=== PATIENT | male | born 1955 | race Caucasian/White ===

== ENCOUNTER → 2018-11-16 | Outpatient (CLI) | payer MEDICARE ==
--- NOTE | 2018-11-17 12:39 | RADIOLOGY REPORT (SQ) ---
EXAM DESCRIPTION: PET CT SKULL/THIGH COMPLETED DATE/TIME: 11/16/2018 10:11 pm REASON FOR STUDY: COLON CANCER C18.7 MALIGNANT NEOPLASM OF SIGMOID COLON COMPARISON: No prior imaging available RADIONUCLIDE AND DOSE: 10.5 mCi F18 FDG The route of agent administration: Intravenous FASTING BLOOD SUGAR: 132 mg/dl CONTRAST TYPE AND DOSE: No CT contrast given. TECHNIQUE: Blood glucose level was verified. Above dose of FDG was injected intravenously. 2-D seg mented attenuation correction images were obtained from the base of the skull to the midthighs. Nonc ontrast CT images were obtained for attenuation correction and fusion with emission images. CT image s were performed without oral or intravenous contrast and are not sensitive for parenchymal lesions. A series of overlapping emission PET images were obtained. Images reviewed and manipulated at [facility] work station by the radiologist. Images stored on PACS. LIMITATIONS: None. FINDINGS: HEAD AND NECK: No areas of abnormal metabolic activity in the soft tissues of the head and neck. CHEST: No areas of abnormal metabolic activity in the chest. ABDOMEN AND PELVIS: No areas of abnormal metabolic activity in the abdomen or pelvis. Expected physi ologic activity is present in the genitourinary system and bowel. PROXIMAL LOWER EXTREMITIES: No areas of abnormal metabolic activity in the soft tissues of the lower extremities. BONES: No abnormal metabolic activity in the visualized skeleton. ADDITIONAL CT FINDINGS: G tube tip in the antrum of the stomach. Left permanent central line tip sup erior vena cava. Non metabolic hepatic cysts in the right lobe liver subdiaphragmatic surface, 3.2 c m diameter on axial image 113, 4.6 cm right lobe liver image 127. OTHER: Liver background activity 2.5 SUV, blood pool background activity 1.8 SUV. IMPRESSION: No hypermetabolic lesions worrisome for metastatic colon cancer TECHNICAL DOCUMENTATION: JOB ID: [id number] [employer]- All Rights Reserved Reading location - IP/workstation name: [email or web address]
== END ==
LOC: RAD 19:25
PROVIDERS: ATTEND Internal Medicine Medical Oncology
DX: C18.7 Malignant neoplasm of sigmoid colon (principal)
CPT/HCPCS: 78815; A9552

== ENCOUNTER 2018-12-16 15:38 | Day surgery (SDC) | payer MEDICARE ==
[~2018-12-16 15:38] MED LIST: DIPHENHYDRAMINE HCL 50 MG/ML VIAL ONE; EPINEPHRINE INJ 1 MG/10 ML DISP.SYRIN ONE; FENTANYL CITRATE INJ/PF 100 MCG/2 ML AMPUL ONE; FLUMAZENIL INJ 0.5 MG/5 ML VIAL ONE; GLUCAGON,HUMAN RECOMB 1 MG INJ ONE; MIDAZOLAM 2 MG/2 ML INJ ONE; NALOXONE HCL INJ/PF 0.4 MG/1 ML SDV ONE; ONDANSETRON HCL INJ/PF 4 MG/2 ML SDV ONE
--- NOTE | 2018-12-16 18:17 | Operative Report ---
Operative Report DATE OF SURGERY: 12/16/18 Operative Report: Pre-op diagnosis: History of metastatic colon cancer Post-op diagnosis: 1. Gastritis involving the antrum and body 2. Rectosigmoid lesion with stricture Surgery: Upper endoscopy, biopsy and Colonoscopy with biopsy Medications: Versed 2mg, Fentanyl 50mcg IV push Tissue removed: Gastric antrum and body biopsies, rectosigmoid biopsy Procedure: After informed consent obtained from patient, patient's pharynx was sprayed with Hurricane and conscious sedation was achieved. The upper endoscope was then inserted into the esophagus under direct vision and advanced into the stomach and further into the duodenum. Detailed examination of the duodenum, stomach and the esophagus was then performed. A digital rectal examination was performed and this was unremarkable. The colonoscope was inserted into the rectum and advanced to the cecum. The appe ndiceal orifice and the terminal ileum were both identified. The mucosa was examined into details as the colonoscope was slowly pulled out of the patient. The endoscope was retroflexed in the rectum. Patient tolerated the procedure well. Findings Esophagus: Normal Stomach: Mild erythema noted in the gastric antrum and body. The PEG tube was noted in the gastric body Duodenum: Normal Cecum: Normal Ascending colon: Normal Transverse colon: Normal Descending colon: Normal Sigmoid colon: There was erythema, edema, friability, and stenosis noted at the rectosigmoid area at about 12 cm. Biopsy was taken Rectum: Normal except for internal hemorrhoids Plan: Await pathology. Omeprazole 20 mg daily OPERATION: .
[2018-12-16 19:23] VITALS: BP 141/76
== END 2018-12-16 19:16 | disposition home or self-care (01) ==
LOC: END 15:38
PROVIDERS: ATTEND Internal Medicine Gastroenterology
DX: C18.9 Malignant neoplasm of colon, unspecified (principal); D12.6 Benign neoplasm of colon, unspecified; K56.699 Other intestinal obstruction unspecified as to partial versus complete obstruction; K29.50 Unspecified chronic gastritis without bleeding; K62.5 Hemorrhage of anus and rectum; C78.7 Secondary malignant neoplasm of liver and intrahepatic bile duct; C78.00 Secondary malignant neoplasm of unspecified lung; C79.00 Secondary malignant neoplasm of unspecified kidney and renal pelvis; E66.9 Obesity, unspecified; Z79.01 Long term (current) use of anticoagulants; Z79.899 Other long term (current) drug therapy; Z68.31 Body mass index [BMI] 31.0-31.9, adult; Z86.718 Personal history of other venous thrombosis and embolism
CPT/HCPCS: 43239; 45380; 88342 ×2; 88305 ×2; J2250; J3010; J0171; J1200; J1610; J2310; J2405; J3490

== ENCOUNTER 2019-02-05 07:25 | Inpatient (IN) | payer MEDICARE ==
--- NOTE | 2019-01-29 09:52 | RADIOLOGY REPORT (SQ) ---
EXAM DESCRIPTION: CHEST PA/LATERAL COMPLETED DATE/TIME: 01/29/2019 9:43 am REASON FOR STUDY: PRE-OP COMPARISON: PET-CT 11/16/2018 EXAM PARAMETERS: NUMBER OF VIEWS: two views TECHNIQUE: Digital Frontal and Lateral radiographic views of the chest acquired. RADIATION DOSE: NA LIMITATIONS: none FINDINGS: LUNGS AND PLEURA: Old pleural-parenchymal scarring in the left lateral chest adjacent to m ultiple old healed rib fractures. No acute infiltrates. No pleural effusion or pneumothorax. MEDIASTINUM AND HILAR STRUCTURES: No masses or contour abnormalities. HEART AND VASCULAR STRUCTURES: Mild cardiomegaly BONES: No acute findings. HARDWARE: Left-sided permanent central line tip superior vena cava OTHER: No other significant finding. IMPRESSION: No acute findings. Multiple old left rib fractures with adjacent pleural thickening TECHNICAL DOCUMENTATION: JOB ID: [id number] [employer] All Rights Reserved Reading location - IP/workstation name: [email or web address]
[2019-01-29 10:06] LABS: HEMATOCRIT 36.9 % (37.9-51.0); HEMOGLOBIN 12.2 g/dL (13.5-17.0); MEAN CORPUSCULAR HEMOGLOBIN 30.4 pg (27.0-33.4); MEAN CORPUSCULAR HGB CONC 33.1 g/dL (32.0-36.0); MEAN CORPUSCULAR VOLUME 92 fl (80-97); PLATELET COUNT 245 10^3/uL (150-450); RED BLOOD COUNT 4.02 10^6/uL (4.35-5.55); RED CELL DISTRIBUTION WIDTH 14.3 % (11.5-14.0); WHITE BLOOD COUNT 9.8 10^3/uL (4.0-10.5)
[2019-01-29 10:37] LABS: ANION GAP 7 (5-19); BLOOD UREA NITROGEN 15 mg/dL (7-20); CALCIUM 9.9 mg/dL (8.4-10.2); CARBON DIOXIDE 26 mmol/L (22-30); CHLORIDE 104 mmol/L (98-107); GLUCOSE 103 mg/dL (75-110); POTASSIUM 4.2 mmol/L (3.6-5.0); SODIUM 137.4 mmol/L (137-145)
--- NOTE | 2019-01-29 15:32 | EKG REPORT ---
SEVERITY:- BORDERLINE ECG - SINUS RHYTHM LOW VOLTAGE IN FRONTAL LEADS BORDERLINE T ABNORMALITIES, INFERIOR LEADS : Confirmed by: Letha Arroyo MD 29-Jan-2019 15:31:38
[~2019-02-05 07:25] MED LIST changes: +CEFAZOLIN 2 GM/D5W RTU 2 GM/50 ML RTUPB IV ONE; +CEFAZOLIN 2 GM/D5W RTU 2 GM/50 ML RTUPB IV PRN; -DIPHENHYDRAMINE HCL 50 MG/ML VIAL ONE; -EPINEPHRINE INJ 1 MG/10 ML DISP.SYRIN ONE; -FENTANYL CITRATE INJ/PF 100 MCG/2 ML AMPUL ONE; -FLUMAZENIL INJ 0.5 MG/5 ML VIAL ONE; -GLUCAGON,HUMAN RECOMB 1 MG INJ ONE; +LACTATED RINGERS 1000 ML IV PRN; +LIDOCAINE 0.5% INJ-PF (5 MG/ML) 50 ML SDV SUBCUT PRN; +METRONIDAZOLE 500 MG/NS RTU 500 MG/100 ML RTUPB IV ONE; +METRONIDAZOLE 500 MG/NS RTU 500 MG/100 ML RTUPB IV PRN; -MIDAZOLAM 2 MG/2 ML INJ ONE; -NALOXONE HCL INJ/PF 0.4 MG/1 ML SDV ONE; -ONDANSETRON HCL INJ/PF 4 MG/2 ML SDV ONE
[2019-02-05] MEDS ORDERED: BUPIVACAINE HCL 0.5%-EPI 1:200000 INJ/PF 30 ML VIAL ONE (09:34)
[2019-02-05] MEDS ORDERED: MIDAZOLAM 2 MG/2 ML INJ ONE (09:37)
[2019-02-05] MEDS ORDERED: ACETAMINOPHEN 1,000 MG/100 ML RTUPB IV ONE (09:37)
[2019-02-05] MEDS ORDERED: PROPOFOL INJ 200 MG/20 ML VIAL IV ONE (09:37)
[2019-02-05] MEDS ORDERED: FENTANYL CITRATE INJ/PF 250 MCG/5 ML AMPULE ONE ×3 (09:37→13:04)
[2019-02-05] MEDS ORDERED: HYDROMORPHONE HCL INJ/PF 2 MG/ML AMPULE ONE ×3 (09:37→13:05)
[2019-02-05] MEDS ORDERED: SUGAMMADEX SODIUM 200 MG/2 ML SDV IV ONE (09:38)
[2019-02-05 09:41] LABS: INTERNATIONAL RATION (INR) 1.12
[2019-02-05 09:43] LABS: PARTIAL THROMBOPLASTIN TIME 39.7 SEC (23.5-35.8)
[2019-02-05] MEDS ORDERED: MORPHINE SULFATE 10 MG/ML INJ IV PRN ×3 (10:58→15:43)
[2019-02-05] MEDS ORDERED: MEPERIDINE HCL/PF INJ 25 MG/1 ML DISP.SYRIN IV PRN ×2 (10:58→14:29)
[2019-02-05] MEDS ORDERED: PROMETHAZINE HCL INJ 25 MG/1 ML VIAL IV PRN ×3 (10:58→14:29)
[2019-02-05] MEDS ORDERED: FENTANYL CITRATE INJ/PF 100 MCG/2 ML AMPUL IV PRN ×6 (10:58→14:29)
[2019-02-05] MEDS ORDERED: DIPHENHYDRAMINE HCL 50 MG/ML VIAL IV PRN ×2 (10:58→14:29)
[2019-02-05] MEDS ORDERED: METOPROLOL TARTRATE PF/INJ 5 MG/5 ML SDV IV ONE (11:15)
[2019-02-05] MEDS ORDERED: METHYLENE BLUE 50 MG/10 ML AMPULE ONE (11:21)
[2019-02-05] MEDS ORDERED: DEXAMETHASONE SOD PHOSPHATE INJ 4 MG/1 ML VIAL ONE (11:29)
[2019-02-05] MEDS ORDERED: LIDOCAINE 2% INJ-PF (20 MG/ML) 2 ML AMPUL ONE (11:29)
[2019-02-05] MEDS ORDERED: GLYCOPYRROLATE 1 MG/5 ML SYRINGE ONE (11:29)
[2019-02-05] MEDS ORDERED: VECURONIUM BROMIDE INJ 10 MG VIAL IV ONE (11:29)
[2019-02-05] MEDS ORDERED: KETOROLAC TROMETHAMINE 60 MG/2 ML SDV ONE (11:29)
[2019-02-05] MEDS ORDERED: NEOSTIGMINE METHYLSULFATE 10 MG/10 ML VIAL ONE (11:29)
[2019-02-05] MEDS ORDERED: ONDANSETRON HCL INJ/PF 4 MG/2 ML SDV ONE ×2 (11:29→16:10)
[2019-02-05] MEDS ORDERED: OXYCODONE-ACETAMINOPHEN 5-325 MG TABLET PO PRN ×2 (14:29)
--- NOTE | 2019-02-05 15:50 | RADIOLOGY REPORT (SQ) ---
EXAM DESCRIPTION: KUB/ABDOMEN (SINGLE VIEW) COMPLETED DATE/TIME: 02/05/2019 3:28 pm REASON FOR STUDY: INTRA-OP SURGICAL COUNT DISCREPENCY C18.9 MALIGNANT NEOPLASM OF COLON, UNSPECIFIE D COMPARISON: None. NUMBER OF VIEWS: One view. TECHNIQUE: Supine radiographic image of the abdomen acquired. LIMITATIONS: None. FINDINGS: BOWEL GAS PATTERN: Normal bowel gas pattern. No dilated loops. CALCIFICATIONS: No suspicious calcifications. SOFT TISSUES: No gross mass or suggestion of organomegaly. HARDWARE: None in the abdomen. BONES: No acute fracture. No worrisome bone lesions. OTHER: No metallic foreign body. Percutaneous gastrostomy tube and postoperative findings including surgical drain about the low abdomen, Draper catheter, and left lower quadrant colostomy appliance. IMPRESSION: No metallic foreign body in the abdomen to correspond to missing surgical instrument. TECHNICAL DOCUMENTATION: JOB ID: [id number] [employer]- All Rights Reserved Reading location - IP/workstation name: [email or web address]
[2019-02-05] MEDS ORDERED: FENTANYL CITRATE INJ/PF 100 MCG/2 ML AMPUL ONE (15:58)
[2019-02-05] MEDS: ONDANSETRON HCL INJ/PF 4 MG/2 ML SDV IV PRN (16:12)
[2019-02-05] MEDS: MORPHINE SULFATE 10 MG/ML INJ IV PRN (19:16)
[2019-02-05] MEDS: FAMOTIDINE INJ/PF 20 MG/2 ML SDV IV SCH (21:35)
[2019-02-05] MEDS: HEPARIN SOD (PORCINE) 5,000 UNIT/ML 1 ML SYRINGE SUBCUT SCH (21:35)
[2019-02-05] MEDS: ZOLPIDEM TARTRATE 5 MG TABLET PO SCH (21:36)
[2019-02-05] MEDS: OXYCODONE-ACETAMINOPHEN 5-325 MG TABLET PO PRN (21:36)
[2019-02-06] MEDS: OXYCODONE-ACETAMINOPHEN 5-325 MG TABLET PO PRN ×3 (04:12→17:21)
[2019-02-06] MEDS: HEPARIN SOD (PORCINE) 5,000 UNIT/ML 1 ML SYRINGE SUBCUT SCH ×3 (05:44→22:06)
[2019-02-06 06:05] LABS: HEMATOCRIT 25.1 % (37.9-51.0); HEMOGLOBIN 8.5 g/dL (13.5-17.0); MEAN CORPUSCULAR HEMOGLOBIN 30.6 pg (27.0-33.4); MEAN CORPUSCULAR HGB CONC 33.6 g/dL (32.0-36.0); MEAN CORPUSCULAR VOLUME 91 fl (80-97); PLATELET COUNT 220 10^3/uL (150-450); RED BLOOD COUNT 2.76 10^6/uL (4.35-5.55); RED CELL DISTRIBUTION WIDTH 14.1 % (11.5-14.0); WHITE BLOOD COUNT 17.7 10^3/uL (4.0-10.5)
[2019-02-06 06:32] LABS: BLOOD UREA NITROGEN 14 mg/dL (7-20); GLUCOSE 126 mg/dL (75-110); POTASSIUM 5.1 mmol/L (3.6-5.0)
[2019-02-06 06:35] LABS: ABSOLUTE LYMPHOCYTES# (MANUAL) 0.5 10^3/uL (0.5-4.7); ABSOLUTE MONOCYTES # (MANUAL) 0.2 10^3/uL (0.1-1.4); BASOPHILS % (MANUAL) 0 % (0-2); EOSINOPHILS % (MANUAL) 0 % (0-6); LYMPHOCYTES % (MANUAL) 3 % (13-45); MONOCYTES % (MANUAL) 1 % (3-13); SEGMENTED NEUTROPHILS % (MAN) 96 % (42-78); TOTAL CELLS COUNTED 100
[2019-02-06 06:36] LABS: PLATELET COMMENT ADEQUATE; RBC MORPHOLOGY COMMENT NORMO-CYTIC/CHROMIC; TOXIC GRANULATION SLIGHT; TOXIC VACUOLATION PRESENT
[2019-02-06 06:38] LABS: CARBON DIOXIDE 27 mmol/L (22-30); CHLORIDE 103 mmol/L (98-107); SODIUM 133.3 mmol/L (137-145)
[2019-02-06 06:42] LABS: ANION GAP 3 (5-19)
--- NOTE | 2019-02-06 07:51 | Operative Report ---
Operative Report DATE OF SURGERY: 02/05/19 PREOPERATIVE DIAGNOSIS: hx of colon cancer POSTOPERATIVE DIAGNOSIS: recurrent colon cancer OPERATION: laparoscopic converted to open sigmoid colectomy with. colostomy SURGEON: MARIETTA TODD 1ST REEL STRIPPER: SIERRA GOMEZ ANESTHESIA: GA TISSUE REMOVED OR ALTERED: simoid colon, rectum COMPLICATIONS: none ESTIMATED BLOOD LOSS: 200cc INTRAOPERATIVE FINDINGS: strictue of rectum and recurrent colon cancer in pelvis PROCEDURE: see dictation
--- NOTE | 2019-02-06 07:55 | PDOC PROGRESS REPORT ---
Subjective Progress Note for:: 02/06/19 Subjective:: feels ok , still iwth incisional pain Reason For Visit: RECTAL CANCER Physical Exam Vital Signs: Temp Pulse Resp BP Pulse Ox 97.8 F 91 15 131/86 H 95 02/06/19 00:02 02/06/19 00:02 02/06/19 00:02 02/06/19 00:02 02/06/19 00:02 Intake & Output 02/05/19 02/06/19 02/07/19 06:59 06:59 06:59 Intake Total 9440 Output Total 4395 Balance 5045 Weight 101.2 kg General appearance: PRESENT: no acute distress Head exam: PRESENT: normocephalic Eye exam: PRESENT: conjunctiva pink, EOMI Mouth exam: PRESENT: dry mucosa Teeth exam: PRESENT: poor dentation Neck exam: PRESENT: full ROM Respiratory exam: PRESENT: clear to auscultation luna Cardiovascular exam: PRESENT: RRR Pulses: PRESENT: normal radial pulses, normal femoral pulses, +2 pedal pulses bilateral Vascular exam: PRESENT: normal capillary refill GI/Abdominal exam: PRESENT: other - abd soft, incision clean, stoma pink Rectal exam: PRESENT: deferred Gentrourinary exam: PRESENT: indwelling catheter Extremities exam: PRESENT: full ROM Musculoskeletal exam: PRESENT: full ROM Neurological exam: PRESENT: alert, awake, oriented to person, oriented to place, oriented to time, oriented to situation Psychiatric exam: PRESENT: appropriate affect Skin exam: PRESENT: dry Results Laboratory Results: 02/06/19 06:00 02/06/19 06:00 02/06/19 02/06/19 06:00 06:00 WBC 17.7 H RBC 2.76 L Hgb 8.5 L Hct 25.1 L MCV 91 MCH 30.6 MCHC 33.6 RDW 14.1 H Plt Count 220 Seg Neutrophils % Not Reportable Lymphocytes % Not Reportable Monocytes % Not Reportable Eosinophils % Not Reportable Basophils % Not Reportable Absolute Neutrophils Not Reportable Absolute Lymphocytes Not Reportable Absolute Monocytes Not Reportable Absolute Eosinophils Not Reportable Absolute Basophils Not Reportable Sodium 133.3 L Potassium 5.1 H Chloride 103 Carbon Dioxide 27 Anion Gap 3 L BUN 14 Creatinine 1.28 H Est GFR ( Amer) > 60 Est GFR (Non-Af Amer) 57 L Glucose 126 H Calcium 8.0 L Impressions: Chest X-Ray 04/18/19 09:35 IMPRESSION: No acute findings. Multiple old left rib fractures with adjacent pleural thickening KUB X-Ray 02/05/19 14:49 IMPRESSION: No metallic foreign body in the abdomen to correspond to missing surgical instrument. Assessment & Plan - Plan Summary Plan Summary: procedure and finding explained to pt has recurrent rectal cancer with pelvic nodes and rectal stricture required a colostomy now post op day 1 afeb vss hct decreased apppropiate post op, will trend no op via stoma as yet will increase acitivity today physical therapy await return of bowel function
[2019-02-06] MEDS: DEXTROSE 5%-LACTATED RINGERS 1,000 ML IV PRN ×2 (08:11→17:11)
[2019-02-06] MEDS: FAMOTIDINE INJ/PF 20 MG/2 ML SDV IV SCH ×2 (08:59→22:06)
[2019-02-06] MEDS ORDERED: CHLORPROMAZINE HCL INJ 25 MG/1 ML AMPULE IM PRN (11:14)
[2019-02-06] MEDS: MORPHINE SULFATE 10 MG/ML INJ IV PRN ×2 (11:26→19:33)
[2019-02-06] MEDS: ZOLPIDEM TARTRATE 5 MG TABLET PO SCH (22:06)
[2019-02-07] MEDS: OXYCODONE-ACETAMINOPHEN 5-325 MG TABLET PO PRN ×3 (01:14→14:53)
[2019-02-07] MEDS: DEXTROSE 5%-LACTATED RINGERS 1,000 ML IV PRN ×2 (01:15→11:36)
[2019-02-07] MEDS: HEPARIN SOD (PORCINE) 5,000 UNIT/ML 1 ML SYRINGE SUBCUT SCH ×3 (05:43→21:56)
[2019-02-07] MEDS: FAMOTIDINE INJ/PF 20 MG/2 ML SDV IV SCH ×2 (08:38→21:55)
[2019-02-07 10:29] LABS: ABSOLUTE EOSINOPHILS # (AUTO) 0.1 10^3/uL (0.0-0.6); ABSOLUTE LYMPHOCYTES (AUTO) 1.1 10^3/uL (0.5-4.7); ABSOLUTE MONOCYTES (AUTO) 0.7 10^3/uL (0.1-1.4); ABSOLUTE NEUT (AUTO) 9.9 10^3/uL (1.7-8.2); BASOPHILS % (AUTO) 0.2 % (0-2); EOSINOPHILS % (AUTO) 0.7 % (0-6); HEMATOCRIT 21.3 % (37.9-51.0); LYMPHOCYTES % (AUTO) 9.2 % (13-45); MEAN CORPUSCULAR HEMOGLOBIN 30.2 pg (27.0-33.4); MEAN CORPUSCULAR HGB CONC 32.8 g/dL (32.0-36.0); MEAN CORPUSCULAR VOLUME 92 fl (80-97); MONOCYTES % (AUTO) 5.9 % (3-13); PLATELET COUNT 165 10^3/uL (150-450); RED BLOOD COUNT 2.31 10^6/uL (4.35-5.55); RED CELL DISTRIBUTION WIDTH 13.9 % (11.5-14.0); TOTAL CELLS COUNTED % (AUTO) 100 %; WHITE BLOOD COUNT 11.8 10^3/uL (4.0-10.5)
[2019-02-07 10:38] LABS: BLOOD UREA NITROGEN 13 mg/dL (7-20); CALCIUM 7.8 mg/dL (8.4-10.2); CHLORIDE 103 mmol/L (98-107); GLUCOSE 105 mg/dL (75-110); POTASSIUM 3.9 mmol/L (3.6-5.0)
[2019-02-07 10:44] LABS: CARBON DIOXIDE 29 mmol/L (22-30); SODIUM 133.6 mmol/L (137-145)
[2019-02-07 10:47] LABS: ANION GAP 2 (5-19)
--- NOTE | 2019-02-07 11:08 | PDOC PROGRESS REPORT ---
Subjective Progress Note for:: 02/07/19 Subjective:: feels weak was up ambulating yesterday Reason For Visit: RECTAL CANCER Physical Exam Vital Signs: Temp Pulse Resp BP Pulse Ox 98.5 F 87 17 125/64 97 02/06/19 23:33 02/06/19 23:33 02/06/19 23:33 02/06/19 23:33 02/06/19 23:33 Intake & Output 02/06/19 02/07/19 02/08/19 06:59 06:59 06:59 Intake Total 9440 2707 Output Total 4397 4244 Balance 5045 362 Weight 101.2 kg 111.7 kg General appearance: PRESENT: no acute distress Eye exam: PRESENT: EOMI Mouth exam: PRESENT: dry mucosa Teeth exam: PRESENT: poor dentation Neck exam: PRESENT: full ROM Respiratory exam: PRESENT: clear to auscultation luna Cardiovascular exam: PRESENT: RRR Pulses: PRESENT: normal radial pulses, normal femoral pulses GI/Abdominal exam: PRESENT: hypoactive bowel sounds, soft, other - gonzález's serosanganeous Rectal exam: PRESENT: deferred Gentrourinary exam: PRESENT: indwelling catheter Extremities exam: PRESENT: full ROM, +2 edema Musculoskeletal exam: PRESENT: full ROM Neurological exam: PRESENT: alert, awake, oriented to person, oriented to place, oriented to time, oriented to situation Psychiatric exam: PRESENT: depressed Skin exam: PRESENT: dry Results Laboratory Results: 02/07/19 10:02 02/07/19 10:02 02/07/19 02/07/19 10:02 10:02 WBC 11.8 H RBC 2.31 L Hgb 7.0 L Hct 21.3 L MCV 92 MCH 30.2 MCHC 32.8 RDW 13.9 Plt Count 165 Seg Neutrophils % 84.0 H Lymphocytes % 9.2 L Monocytes % 5.9 Eosinophils % 0.7 Basophils % 0.2 Absolute Neutrophils 9.9 H Absolute Lymphocytes 1.1 Absolute Monocytes 0.7 Absolute Eosinophils 0.1 Absolute Basophils 0.0 Sodium 133.6 L Potassium 3.9 Chloride 103 Carbon Dioxide 29 Anion Gap 2 L BUN 13 Creatinine 1.14 Est GFR ( Amer) > 60 Est GFR (Non-Af Amer) > 60 Glucose 105 Calcium 7.8 L Impressions: Chest X-Ray 01/29/19 09:35 IMPRESSION: No acute findings. Multiple old left rib fractures with adjacent pleural thickening KUB X-Ray 02/05/19 14:49 IMPRESSION: No metallic foreign body in the abdomen to correspond to missing surgical instrument. Assessment & Plan - Plan Summary Plan Summary: 2 days status post attempted laparoscopic sigmoid colectomy converted to open sigmoid colectomy with colostomy. Patient was up ambulating yesterday feels weak today Ostomy appears to be pink with minimal output Viet-Merida drains are putting out serosanguineous fluid Hemoglobin Came back at 7.0 today with a white count of 11.8 Impression status post attempted laparoscopic sigmoid colectomy conversion to open laparotomy and sigmoid colectomy, partial proctectomy and colostomy for sigmoid rectal cancer Plan we will transfuse the patient 2 units of packed red cells today Continue to increase activity and await for return of bowel function
--- NOTE | 2019-02-07 13:55 | OPERATIVE REPORT E ---
Operative Report NAME: JIM THOMAS : 1955 AGE: 63Y DATE OF SURGERY: 02/05/2019 ROOM: 530 PREOPERATIVE DIAGNOSIS: HISTORY OF COLON CANCER. POSTOPERATIVE DIAGNOSIS: RECURRENT COLON CANCER. OPERATION: Laparoscopic converted to open sigmoid colectomy with partial proctectomy and colostomy. SURGEON: MARIETTA TODD M.D. HEAD SAMPLER: Akil Peterson MD INDICATIONS FOR SURGERY: This is a 63-year-old male who is a patient of Dr. Ortiz, who was sent for surgical consultation for a sigmoid colectomy. The patient was diagnosed with colon cancer in May of 2019. He received chemotherapy due to the fact that he had areas of metastatic disease in his liver at that time, which was diagnosed on PET scan, and also of his kidney and lung. The patient states that after he received chemo, a PET scan in November revealed no evidence of metastatic disease. He was sent to Dr. Melendez for a colonoscopy in December 2018. At that time, Dr. Melendez noted a sigmoid colonic stricture, which he was able to traverse, and that was biopsied. The biopsy proved was negative, but there was a stricture supposedly related to the previous history of colon cancer. He underwent a PET scan subsequent to that, which showed no evidence of metastatic disease. Because of the stricture and previous history of colon cancer and the fact that he was having intermittent bouts of constipation and diarrhea, he was scheduled for surgery for a sigmoid colectomy, in hopes of resecting the sigmoid colon with stricture at the previous tumor site. It was reported by Dr. Melendez to be approximately 12 cm. The patient was therefore scheduled for this procedure. PROCEDURE: The patient was brought to the operating room in awake, alert and stable condition, placed on the operating table in a low lithotomy position, induced under general anesthesia and intubated. The abdomen was prepped and draped in the usual sterile manner for the procedure. The patient did have a previous gastrostomy tube placed during his course of previous chemotherapy and that was prepped out of the wound. After appropriate timeout and site verification, we commenced the surgery. A Veress needle was placed into the umbilicus and the abdomen was insufflated with 6 liters of CO2 gas. An infraumbilical skin incision was made with a 15 blade and a port was placed into the abdominal cavity. Intraabdominal visualization revealed no evidence of a Veress needle or trocar injury. Two right-sided 5-mm ports were placed under direct vision. We immediately identified the colon and we ran the right colon, transverse colon, splenic flexure, descending colon. All appeared to be normal. There was a redundant descending colon and sigmoid colon. The liver was evaluated and it appeared to be mildly nodular, consistent with early cirrhosis, but there was no evidence of any metastatic deposits, nor was there any peritoneal spread of any tumor that we could identify. We identified the sigmoid colon and retracted that out of the pelvis. Began our dissection of the distal sigmoid colon. Proximal rectum was mobilized, and the left side of the sigmoid colon, by taking down the peritoneal reflection with the LigaSure device, and continued that down to the sigmoid-rectal junction. There was some firmness of the sigmoid-rectal junction but there was no evidence of any excrescences or tumor nodules. After identifying the left ureter, I turned attention to the right side of the sigmoid colon and mobilized the peritoneal reflection to identify the right ureter. Once this was done, the patient was placed in Trendelenburg and we mobilized the mesentery off the sacrum and identified the inferior mesenteric artery, which was taken at its base with the LigaSure device. We then continue our mobilization distally to mobilize the distal rectum, along the presacral fascia. Once this was completed, I turned attention to the descending colon so I could mobilize that and allow it to come down to the area of our anastomosis. I took down the white line of Toldt with the LigaSure device and continued our dissection up towards the splenic flexure. I did not have to mobilize the splenic flexure, as there was enough descending and proximal sigmoid colon to easily come down to the pelvis. Once the descending colon was mobilized with the LigaSure device, I came across the distal rectum with 1 firing of the Endo TIMI stapler with a green load. It should be noted that the patient had a previous tattoo marked by Dr. Melendez at the level of the lesion. The sigmoid stapler came across the proximal rectum distal to that tattooed area. After dividing the sigmoid from the rectum, I then placed a clamp on the end of the divided sigmoid and reduced the pneumoperitoneum. We then made an incision in the left lower quadrant with a 15 blade, approximately 8 cm long, and carried our dissection down through subcutaneous tissue with Bovie cautery until I identified the rectus fascia. Just lateral to the rectus fascia, I made a transverse incision in the external oblique and lateral edge of the rectus muscle, and divided the posterior sheath with the Bovie cautery to gain access to the abdominal cavity. I then placed an Laure wound protector in through that incision and then was able to pull up the sigmoid colon into the wound. I was able to deliver approximately 15 to 20 cm of sigmoid colon. I cleared the proximal edge of the sigmoid colon of its mesenteric fat with the Bovie cautery and then came across and placed a bowel clamp on the stay side of it and a Bella clamp on the specimen side, and divided it with Bovie cautery; that was sent off as specimen. I used a sizer then to size the distal descending colon and easily admitted a 33-mm staple anvil, which I placed into the end of the colon. I placed a 2-0 Prolene pursestring suture at the open edge of the colon, and then after the anvil was placed, I tied the pursestring suture down around the neck of the anvil. We then dropped that back into the abdominal cavity and closed off that laure wound protector so that I could reinsufflate the abdominal cavity. Once this was completed, we reinsufflated the abdominal cavity and turned attention to the rectum. I mobilized a little bit more the rectum with sharp dissection using the LigaSure device to allow it to easily come up from the pelvis and so it would be an easy fit to the anvil that was placed in the descending colon. Once this was completed, I went below and used a small dilator to pass into the rectum so that we could dilate it somewhat for the anastomosis. The small rectal dilator did not go through; in fact, it got hung up at about 12 cm. Therefore, I felt that I was not below the previous stricture that was noted by Dr. Melendez. Even though the tattooed section of the sigmoid colon was removed, the stricture was still distal to that. After multiple attempts with the dilator, we could not dilate the stricture, and I therefore attempted to continue laparoscopically to mobilize more rectum, so I could be able to get below the area of strictured rectum. After a prolonged dissection, I felt that laparoscopically, I could not mobilize enough rectum. It seemed fixed in the pelvis, and therefore, I elected to abandon the laparoscopic attempt and perform a low midline incision. Therefore, the pneumoperitoneum was reduced and I made a midline low abdominal incision from approximately 10 cm above the pubic symphysis. This was done with a 15 blade. I carried my dissection down through subcutaneous tissue with Bovie cautery. The midline raphae was identified and this was opened with Bovie cautery. We then used the Bookwalter retractor to gain access. Once this was accomplished, I palpated the distal rectum and it appeared to be quite firm and nodular. I continued my dissection in an attempt to get below it; however, it was fixed posteriorly to the presacral fascia. At this point, I asked Dr. Peterson to come into the operating room to assist and we continued our dissection to try to get distal to the stricture. At one point, the stricture fractured and I noted that I could palpate significant nodularity around the area of the rectum at the level of the stricture. It appeared that there was some lymphadenopathy at the mesorectum, at about 12 cm, in the pelvis. These nodules were outside the rectum, in the presacral space. We continued our mobilization of the distal rectum and finally were able to mobilize it somewhat to get below the area of stricture. Once we did this, we obtained a biopsy of the area around the stricture, external to the rectum, and that biopsy came back adenocarcinoma. I therefore felt uncomfortable at this point performing an anastomosis in an area of recurrent disease and therefore elected to remove the proximal rectum by coming across it with one firing of the Endo TIMI stapler with a green load. That second specimen was removed and sent to pathology. We then had the stump oversewn and I then elected to perform a colostomy instead of a colorectal anastomosis. I made a small incision just to the left of the umbilicus in the rectus fascia using Bovie cautery, ellipsed out an approximately 2-cm segment of skin and carried our dissection down through the rectus fascia. Made a stellate incision in the anterior and posterior sheath and then brought the anvil that had been previously placed in the descending colon up through that incision as a colostomy. Once this was accomplished, I copiously irrigated the abdominal cavity with normal saline and suctioned dry. Hemostasis noted to be intact. I placed a Viet-Merida drain in the pelvis and brought it out through a separate stab wound in the right abdominal wall. We then closed our previous left lower quadrant incision that I used to deliver the specimen, and this was done with interrupted #1 Vicryl sutures. The skin was then closed with standard skin clips. Once this was completed, we matured the colostomy to the skin edge of the left abdominal wall with interrupted 3-0 Vicryl sutures. A sterile colostomy appliance was placed. The midline incision was closed with a double-looped 0 PDS suture in the peritoneum, and then the anterior sheath was closed with interrupted #1 Vicryl sutures. The skin was closed with standard skin clips. This completed the procedure. Note that the midline wound was closed before the stoma was matured. Estimated blood loss was 200 mL. Sponge and needle counts were correct x2. The patient was then awakened in the operating room, extubated and transferred to recovery in stable condition. DICTATING PHYSICIAN: MARIETTA TODD M.D. [id number] PHY#: [id number] ID: [id number] JOB#: [id number] ACCT: [id number] cc:MARIETTA TODD M.D. > MTDD
[2019-02-07] MEDS: MORPHINE SULFATE 10 MG/ML INJ IV PRN ×2 (16:07→20:45)
[2019-02-07] MEDS: ZOLPIDEM TARTRATE 5 MG TABLET PO SCH (21:56)
[2019-02-08] MEDS: HEPARIN SOD (PORCINE) 5,000 UNIT/ML 1 ML SYRINGE SUBCUT SCH ×3 (05:37→21:37)
[2019-02-08] MEDS: MORPHINE SULFATE 10 MG/ML INJ IV PRN ×3 (08:26→20:04)
[2019-02-08] MEDS: OXYCODONE-ACETAMINOPHEN 5-325 MG TABLET PO PRN ×3 (10:23→21:38)
[2019-02-08] MEDS: FAMOTIDINE INJ/PF 20 MG/2 ML SDV IV SCH ×2 (10:23→21:38)
[2019-02-08] MEDS: DEXTROSE 5%-LACTATED RINGERS 1,000 ML IV PRN (12:20)
--- NOTE | 2019-02-08 12:40 | PDOC PROGRESS REPORT ---
Subjective Reason For Visit: RECTAL CANCER Physical Exam Vital Signs: Temp Pulse Resp BP Pulse Ox 97.9 F 110 H 16 149/90 H 96 02/08/19 11:04 02/08/19 11:04 02/08/19 11:04 02/08/19 11:04 02/08/19 11:04 Intake & Output 02/07/19 02/08/19 02/09/19 06:59 06:59 06:59 Intake Total 2707 3906 Output Total 2345 2520 Balance 362 1386 Weight 111.7 kg 114.2 kg General appearance: PRESENT: no acute distress Head exam: PRESENT: normocephalic Eye exam: PRESENT: EOMI Mouth exam: PRESENT: moist Teeth exam: PRESENT: poor dentation Neck exam: PRESENT: full ROM Respiratory exam: PRESENT: clear to auscultation luna Cardiovascular exam: PRESENT: RRR Pulses: PRESENT: normal radial pulses, normal femoral pulses GI/Abdominal exam: PRESENT: soft - few bs Rectal exam: PRESENT: deferred Gentrourinary exam: PRESENT: indwelling catheter Musculoskeletal exam: PRESENT: full ROM Neurological exam: PRESENT: alert, awake, oriented to person, oriented to place Psychiatric exam: PRESENT: appropriate affect Skin exam: PRESENT: dry Results Laboratory Results: 02/07/19 10:02 02/07/19 10:02 02/07/19 11:20 Blood Type O POSITIVE Antibody Screen NEGATIVE Impressions: Chest X-Ray 01/29/19 09:35 IMPRESSION: No acute findings. Multiple old left rib fractures with adjacent pleural thickening KUB X-Ray 02/05/19 14:49 IMPRESSION: No metallic foreign body in the abdomen to correspond to missing surgical instrument. Assessment & Plan - Plan Summary Plan Summary: afeb vss eating full lqiudis no op via stoma as yet few bs wound clean dry encouraged to get out of bed will recheck labs in am virginie lamar.
[2019-02-08 13:33] LABS: ABSOLUTE BASOPHILS # (AUTO) 0.1 10^3/uL (0.0-0.2); ABSOLUTE EOSINOPHILS # (AUTO) 0.4 10^3/uL (0.0-0.6); ABSOLUTE LYMPHOCYTES (AUTO) 0.8 10^3/uL (0.5-4.7); ABSOLUTE MONOCYTES (AUTO) 0.7 10^3/uL (0.1-1.4); ABSOLUTE NEUT (AUTO) 8.8 10^3/uL (1.7-8.2); BASOPHILS % (AUTO) 0.5 % (0-2); EOSINOPHILS % (AUTO) 3.7 % (0-6); HEMATOCRIT 29.8 % (37.9-51.0); LYMPHOCYTES % (AUTO) 7.9 % (13-45); MEAN CORPUSCULAR HEMOGLOBIN 30.4 pg (27.0-33.4); MEAN CORPUSCULAR HGB CONC 34.1 g/dL (32.0-36.0); MEAN CORPUSCULAR VOLUME 89 fl (80-97); MONOCYTES % (AUTO) 6.4 % (3-13); PLATELET COUNT 172 10^3/uL (150-450); RED BLOOD COUNT 3.34 10^6/uL (4.35-5.55); RED CELL DISTRIBUTION WIDTH 14.2 % (11.5-14.0); SEGMENTED NEUTROPHILS % (AUTO) 81.5 % (42-78); TOTAL CELLS COUNTED % (AUTO) 100 %; WHITE BLOOD COUNT 10.7 10^3/uL (4.0-10.5)
[2019-02-08 13:35] LABS: HEMOGLOBIN 10.2 g/dL (13.5-17.0)
[2019-02-08 13:46] LABS: ANION GAP 7 (5-19); BLOOD UREA NITROGEN 8 mg/dL (7-20); CALCIUM 7.8 mg/dL (8.4-10.2); CARBON DIOXIDE 27 mmol/L (22-30); CHLORIDE 103 mmol/L (98-107); GLUCOSE 123 mg/dL (75-110); POTASSIUM 4.3 mmol/L (3.6-5.0); SODIUM 136.7 mmol/L (137-145)
[2019-02-08] MEDS: ZOLPIDEM TARTRATE 5 MG TABLET PO SCH (21:38)
[2019-02-09] MEDS: HEPARIN SOD (PORCINE) 5,000 UNIT/ML 1 ML SYRINGE SUBCUT SCH ×3 (05:14→22:43)
--- NOTE | 2019-02-09 08:36 | PDOC PROGRESS REPORT ---
Subjective Progress Note for:: 02/09/19 Subjective:: feels ok ambulated yesterday juan full lilquids no stool as yet via stoma Reason For Visit: RECTAL CANCER Physical Exam Vital Signs: Temp Pulse Resp BP Pulse Ox 98.2 F 90 16 130/74 H 97 02/09/19 07:39 02/09/19 07:39 02/09/19 07:39 02/09/19 07:39 02/09/19 07:39 Intake & Output 02/08/19 02/09/19 02/10/19 06:59 06:59 06:59 Intake Total 3906 2170 Output Total 2520 7882 Balance 1386 -728 Weight 114.2 kg 112.2 kg General appearance: PRESENT: no acute distress Head exam: PRESENT: normocephalic Eye exam: PRESENT: EOMI Mouth exam: PRESENT: moist Neck exam: PRESENT: full ROM Respiratory exam: PRESENT: clear to auscultation luna Cardiovascular exam: PRESENT: RRR Pulses: PRESENT: normal radial pulses, normal femoral pulses GI/Abdominal exam: PRESENT: soft, other - stoma pink, no productive Rectal exam: PRESENT: deferred Extremities exam: PRESENT: full ROM Musculoskeletal exam: PRESENT: full ROM Neurological exam: PRESENT: alert, awake, oriented to person, oriented to place Psychiatric exam: PRESENT: appropriate affect Results Laboratory Results: 02/08/19 13:15 02/08/19 13:15 02/08/19 02/08/19 13:15 13:15 WBC 10.7 H RBC 3.34 L Hgb 10.2 L D Hct 29.8 L MCV 89 MCH 30.4 MCHC 34.1 RDW 14.2 H Plt Count 172 Seg Neutrophils % 81.5 H Lymphocytes % 7.9 L Monocytes % 6.4 Eosinophils % 3.7 Basophils % 0.5 Absolute Neutrophils 8.8 H Absolute Lymphocytes 0.8 Absolute Monocytes 0.7 Absolute Eosinophils 0.4 Absolute Basophils 0.1 Sodium 136.7 L Potassium 4.3 Chloride 103 Carbon Dioxide 27 Anion Gap 7 BUN 8 Creatinine 0.91 Est GFR ( Amer) > 60 Est GFR (Non-Af Amer) > 60 Glucose 123 H Calcium 7.8 L Impressions: Chest X-Ray 01/29/19 09:35 IMPRESSION: No acute findings. Multiple old left rib fractures with adjacent pleural thickening KUB X-Ray 02/05/19 14:49 IMPRESSION: No metallic foreign body in the abdomen to correspond to missing surgical instrument. Assessment & Plan - Plan Summary Plan Summary: doing well still no bowel function will cont current rx awaing for stoma output before advancing diet.
[2019-02-09] MEDS: DEXTROSE 5%-LACTATED RINGERS 1,000 ML IV PRN ×2 (10:01→22:44)
[2019-02-09] MEDS: FAMOTIDINE INJ/PF 20 MG/2 ML SDV IV SCH ×2 (10:03→22:43)
[2019-02-09] MEDS: OXYCODONE-ACETAMINOPHEN 5-325 MG TABLET PO PRN ×2 (10:33→14:37)
[2019-02-09] MEDS: MORPHINE SULFATE 10 MG/ML INJ IV PRN ×2 (12:50→17:10)
[2019-02-09 16:10] LABS: ABSOLUTE BASOPHILS # (AUTO) 0.1 10^3/uL (0.0-0.2); ABSOLUTE EOSINOPHILS # (AUTO) 0.4 10^3/uL (0.0-0.6); ABSOLUTE LYMPHOCYTES (AUTO) 0.9 10^3/uL (0.5-4.7); ABSOLUTE MONOCYTES (AUTO) 0.7 10^3/uL (0.1-1.4); ABSOLUTE NEUT (AUTO) 7.8 10^3/uL (1.7-8.2); BASOPHILS % (AUTO) 0.5 % (0-2); HEMOGLOBIN 9.7 g/dL (13.5-17.0); MEAN CORPUSCULAR HGB CONC 33.5 g/dL (32.0-36.0); MEAN CORPUSCULAR VOLUME 89 fl (80-97); MONOCYTES % (AUTO) 6.7 % (3-13); PLATELET COUNT 198 10^3/uL (150-450); RED BLOOD COUNT 3.25 10^6/uL (4.35-5.55); RED CELL DISTRIBUTION WIDTH 13.6 % (11.5-14.0); SEGMENTED NEUTROPHILS % (AUTO) 79.8 % (42-78); TOTAL CELLS COUNTED % (AUTO) 100 %; WHITE BLOOD COUNT 9.8 10^3/uL (4.0-10.5)
[2019-02-09 16:18] LABS: ANION GAP 8 (5-19); BLOOD UREA NITROGEN 5 mg/dL (7-20); CALCIUM 7.6 mg/dL (8.4-10.2); CARBON DIOXIDE 27 mmol/L (22-30); CHLORIDE 101 mmol/L (98-107); GLUCOSE 116 mg/dL (75-110); POTASSIUM 4.3 mmol/L (3.6-5.0); SODIUM 136.4 mmol/L (137-145)
[2019-02-09] MEDS: ZOLPIDEM TARTRATE 5 MG TABLET PO SCH (22:43)
[2019-02-10] MEDS: HEPARIN SOD (PORCINE) 5,000 UNIT/ML 1 ML SYRINGE SUBCUT SCH ×3 (05:49→21:51)
[2019-02-10 07:11] LABS: ABSOLUTE EOSINOPHILS # (AUTO) 0.6 10^3/uL (0.0-0.6); ABSOLUTE LYMPHOCYTES (AUTO) 1.3 10^3/uL (0.5-4.7); ABSOLUTE MONOCYTES (AUTO) 0.7 10^3/uL (0.1-1.4); ABSOLUTE NEUT (AUTO) 6.1 10^3/uL (1.7-8.2); BASOPHILS % (AUTO) 0.6 % (0-2); EOSINOPHILS % (AUTO) 6.7 % (0-6); HEMATOCRIT 27.3 % (37.9-51.0); HEMOGLOBIN 9.1 g/dL (13.5-17.0); LYMPHOCYTES % (AUTO) 14.7 % (13-45); MEAN CORPUSCULAR HEMOGLOBIN 29.9 pg (27.0-33.4); MEAN CORPUSCULAR HGB CONC 33.2 g/dL (32.0-36.0); MEAN CORPUSCULAR VOLUME 90 fl (80-97); MONOCYTES % (AUTO) 8.1 % (3-13); PLATELET COUNT 190 10^3/uL (150-450); RED BLOOD COUNT 3.02 10^6/uL (4.35-5.55); SEGMENTED NEUTROPHILS % (AUTO) 69.9 % (42-78); TOTAL CELLS COUNTED % (AUTO) 100 %; WHITE BLOOD COUNT 8.7 10^3/uL (4.0-10.5)
[2019-02-10 07:34] LABS: ANION GAP 7 (5-19); BLOOD UREA NITROGEN 4 mg/dL (7-20); CALCIUM 7.5 mg/dL (8.4-10.2); CARBON DIOXIDE 27 mmol/L (22-30); CHLORIDE 102 mmol/L (98-107); GLUCOSE 90 mg/dL (75-110); POTASSIUM 4.4 mmol/L (3.6-5.0); SODIUM 136.4 mmol/L (137-145)
--- NOTE | 2019-02-10 07:42 | PDOC PROGRESS REPORT ---
Subjective Progress Note for:: 02/10/19 Subjective:: FEELS OK SMALL AMTS OF FLATUS IN STOMA BAG Reason For Visit: RECTAL CANCER Physical Exam Vital Signs: Temp Pulse Resp BP Pulse Ox 98.4 F 89 17 140/96 H 97 02/09/19 23:21 02/09/19 23:21 02/09/19 19:41 02/09/19 23:21 02/09/19 23:21 Intake & Output 02/09/19 02/10/19 02/11/19 06:59 06:59 06:59 Intake Total 3170 2296 Output Total 2898 920 Balance 272 1376 Weight 112.2 kg 112.2 kg General appearance: PRESENT: no acute distress Head exam: PRESENT: normocephalic Eye exam: PRESENT: EOMI Mouth exam: PRESENT: moist Neck exam: PRESENT: full ROM Respiratory exam: PRESENT: clear to auscultation luna Cardiovascular exam: PRESENT: RRR GI/Abdominal exam: PRESENT: hyperactive bowel sounds, normal bowel sounds, soft Rectal exam: PRESENT: deferred, other - STOMA PINK, PRODUCTIVE OF FLATUS Extremities exam: PRESENT: full ROM Musculoskeletal exam: PRESENT: full ROM Neurological exam: PRESENT: alert, awake, oriented to person, oriented to place, oriented to time, oriented to situation Psychiatric exam: PRESENT: appropriate affect Results Laboratory Results: 02/10/19 06:00 02/09/19 02/09/19 02/10/19 15:30 15:30 06:00 WBC 9.8 8.7 RBC 3.25 L 3.02 L Hgb 9.7 L 9.1 L Hct 29.0 L 27.3 L MCV 89 90 MCH 30.0 29.9 MCHC 33.5 33.2 RDW 13.6 14.0 Plt Count 198 190 Seg Neutrophils % 79.8 H 69.9 Lymphocytes % 9.0 L 14.7 Monocytes % 6.7 8.1 Eosinophils % 4.0 6.7 H Basophils % 0.5 0.6 Absolute Neutrophils 7.8 6.1 Absolute Lymphocytes 0.9 1.3 Absolute Monocytes 0.7 0.7 Absolute Eosinophils 0.4 0.6 Absolute Basophils 0.1 0.0 Sodium 136.4 L Potassium 4.3 Chloride 101 Carbon Dioxide 27 Anion Gap 8 BUN 5 L Creatinine 0.78 Est GFR ( Amer) > 60 Est GFR (Non-Af Amer) > 60 Glucose 116 H Calcium 7.6 L Impressions: Chest X-Ray 01/29/19 09:35 IMPRESSION: No acute findings. Multiple old left rib fractures with adjacent pleural thickening KUB X-Ray 02/05/19 14:49 IMPRESSION: No metallic foreign body in the abdomen to correspond to missing surgical instrument. Assessment & Plan - Plan Summary Plan Summary: DOING OK NEED TO INCREASE ACTIVITY NOW WITH FLATUS VIA STOMA WILL CONT TO ENCOURATE OOB CONT CLEAR LIQUIDS TILL PASSING STOOL VIA STOMA
[2019-02-10] MEDS: OXYCODONE-ACETAMINOPHEN 5-325 MG TABLET PO PRN ×3 (09:53→23:12)
[2019-02-10] MEDS: FAMOTIDINE INJ/PF 20 MG/2 ML SDV IV SCH ×2 (09:54→21:50)
[2019-02-10] MEDS: DEXTROSE 5%-LACTATED RINGERS 1,000 ML IV PRN (10:00)
[2019-02-10] MEDS: MORPHINE SULFATE 10 MG/ML INJ IV PRN (19:58)
[2019-02-10] MEDS: ZOLPIDEM TARTRATE 5 MG TABLET PO SCH (21:50)
[2019-02-11] MEDS: OXYCODONE-ACETAMINOPHEN 5-325 MG TABLET PO PRN ×2 (03:28→10:28)
[2019-02-11] MEDS: HEPARIN SOD (PORCINE) 5,000 UNIT/ML 1 ML SYRINGE SUBCUT SCH ×3 (06:24→22:11)
[2019-02-11 06:37] LABS: ABSOLUTE BASOPHILS # (AUTO) 0.1 10^3/uL (0.0-0.2); ABSOLUTE EOSINOPHILS # (AUTO) 0.6 10^3/uL (0.0-0.6); ABSOLUTE LYMPHOCYTES (AUTO) 1.4 10^3/uL (0.5-4.7); ABSOLUTE MONOCYTES (AUTO) 0.7 10^3/uL (0.1-1.4); ABSOLUTE NEUT (AUTO) 4.8 10^3/uL (1.7-8.2); BASOPHILS % (AUTO) 0.8 % (0-2); EOSINOPHILS % (AUTO) 7.5 % (0-6); HEMATOCRIT 28.6 % (37.9-51.0); HEMOGLOBIN 9.6 g/dL (13.5-17.0); LYMPHOCYTES % (AUTO) 18.8 % (13-45); MEAN CORPUSCULAR HGB CONC 33.5 g/dL (32.0-36.0); MEAN CORPUSCULAR VOLUME 90 fl (80-97); MONOCYTES % (AUTO) 9.6 % (3-13); PLATELET COUNT 205 10^3/uL (150-450); RED BLOOD COUNT 3.19 10^6/uL (4.35-5.55); RED CELL DISTRIBUTION WIDTH 13.8 % (11.5-14.0); SEGMENTED NEUTROPHILS % (AUTO) 63.3 % (42-78); TOTAL CELLS COUNTED % (AUTO) 100 %; WHITE BLOOD COUNT 7.6 10^3/uL (4.0-10.5)
[2019-02-11 06:57] LABS: ANION GAP 5 (5-19); BLOOD UREA NITROGEN 4 mg/dL (7-20); CALCIUM 7.9 mg/dL (8.4-10.2); CARBON DIOXIDE 31 mmol/L (22-30); CHLORIDE 103 mmol/L (98-107); GLUCOSE 90 mg/dL (75-110); POTASSIUM 4.4 mmol/L (3.6-5.0); SODIUM 139.3 mmol/L (137-145)
--- NOTE | 2019-02-11 09:43 | PDOC PROGRESS REPORT ---
Subjective Progress Note for:: 02/11/19 Subjective:: feels ok juan full liquids still no stool via stoma Reason For Visit: RECTAL CANCER Physical Exam Vital Signs: Temp Pulse Resp BP Pulse Ox 98.4 F 92 16 134/84 H 96 02/10/19 23:29 02/10/19 23:29 02/10/19 23:29 02/10/19 23:29 02/10/19 23:29 Intake & Output 02/10/19 02/11/19 02/12/19 06:59 06:59 06:59 Intake Total 2296 2298 Output Total 920 1445 Balance 1376 853 Weight 112.2 kg 112.2 kg General appearance: PRESENT: no acute distress Head exam: PRESENT: normocephalic Eye exam: PRESENT: EOMI Teeth exam: PRESENT: poor dentation Neck exam: PRESENT: full ROM Respiratory exam: PRESENT: clear to auscultation luna Cardiovascular exam: PRESENT: RRR Pulses: PRESENT: +2 pedal pulses bilateral Vascular exam: PRESENT: normal capillary refill GI/Abdominal exam: PRESENT: soft, other - stoma pink, digitalized, patent. Rectal exam: PRESENT: deferred Extremities exam: PRESENT: full ROM Musculoskeletal exam: PRESENT: full ROM Neurological exam: PRESENT: alert, awake, oriented to person, oriented to place, oriented to time, oriented to situation Results Laboratory Results: 02/11/19 05:57 02/11/19 05:57 02/11/19 02/11/19 05:57 05:57 WBC 7.6 RBC 3.19 L Hgb 9.6 L Hct 28.6 L MCV 90 MCH 30.0 MCHC 33.5 RDW 13.8 Plt Count 205 Seg Neutrophils % 63.3 Lymphocytes % 18.8 Monocytes % 9.6 Eosinophils % 7.5 H Basophils % 0.8 Absolute Neutrophils 4.8 Absolute Lymphocytes 1.4 Absolute Monocytes 0.7 Absolute Eosinophils 0.6 Absolute Basophils 0.1 Sodium 139.3 Potassium 4.4 Chloride 103 Carbon Dioxide 31 H Anion Gap 5 BUN 4 L Creatinine 0.83 Est GFR ( Amer) > 60 Est GFR (Non-Af Amer) > 60 Glucose 90 Calcium 7.9 L Impressions: Chest X-Ray 01/29/19 09:35 IMPRESSION: No acute findings. Multiple old left rib fractures with adjacent pleural thickening KUB X-Ray 02/05/19 14:49 IMPRESSION: No metallic foreign body in the abdomen to correspond to missing surgical instrument. 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 will plan on dc home when bowel function returns.
[2019-02-11] MEDS: FAMOTIDINE INJ/PF 20 MG/2 ML SDV IV SCH ×2 (10:21→21:57)
[2019-02-11] MEDS: MORPHINE SULFATE 10 MG/ML INJ IV PRN (13:25)
[2019-02-11] MEDS: ZOLPIDEM TARTRATE 5 MG TABLET PO SCH (21:57)
[2019-02-12] MEDS: OXYCODONE-ACETAMINOPHEN 5-325 MG TABLET PO PRN ×3 (02:18→18:40)
[2019-02-12] MEDS: HEPARIN SOD (PORCINE) 5,000 UNIT/ML 1 ML SYRINGE SUBCUT SCH ×3 (06:30→21:24)
[2019-02-12 07:00] LABS: ABSOLUTE EOSINOPHILS # (AUTO) 0.6 10^3/uL (0.0-0.6); ABSOLUTE LYMPHOCYTES (AUTO) 1.5 10^3/uL (0.5-4.7); ABSOLUTE MONOCYTES (AUTO) 0.6 10^3/uL (0.1-1.4); ABSOLUTE NEUT (AUTO) 4.7 10^3/uL (1.7-8.2); BASOPHILS % (AUTO) 0.6 % (0-2); EOSINOPHILS % (AUTO) 7.7 % (0-6); HEMATOCRIT 26.7 % (37.9-51.0); HEMOGLOBIN 8.9 g/dL (13.5-17.0); LYMPHOCYTES % (AUTO) 20.1 % (13-45); MEAN CORPUSCULAR HEMOGLOBIN 29.8 pg (27.0-33.4); MEAN CORPUSCULAR HGB CONC 33.3 g/dL (32.0-36.0); MEAN CORPUSCULAR VOLUME 90 fl (80-97); MONOCYTES % (AUTO) 8.1 % (3-13); PLATELET COUNT 208 10^3/uL (150-450); RED BLOOD COUNT 2.98 10^6/uL (4.35-5.55); RED CELL DISTRIBUTION WIDTH 13.6 % (11.5-14.0); SEGMENTED NEUTROPHILS % (AUTO) 63.5 % (42-78); TOTAL CELLS COUNTED % (AUTO) 100 %; WHITE BLOOD COUNT 7.5 10^3/uL (4.0-10.5)
[2019-02-12 07:37] LABS: BLOOD UREA NITROGEN 5 mg/dL (7-20); CALCIUM 7.5 mg/dL (8.4-10.2); CARBON DIOXIDE 31 mmol/L (22-30); CHLORIDE 103 mmol/L (98-107); GLUCOSE 85 mg/dL (75-110); POTASSIUM 4.5 mmol/L (3.6-5.0); SODIUM 137.8 mmol/L (137-145)
[2019-02-12 07:42] LABS: ANION GAP 4 (5-19)
[2019-02-12] MEDS: FAMOTIDINE INJ/PF 20 MG/2 ML SDV IV SCH ×2 (09:17→21:22)
--- NOTE | 2019-02-12 15:46 | PDOC PROGRESS REPORT ---
Subjective Progress Note for:: 02/12/19 Subjective:: feels better, was upambulating Reason For Visit: RECTAL CANCER Physical Exam Vital Signs: Temp Pulse Resp BP Pulse Ox 97.2 F 94 17 110/72 97 02/12/19 10:59 02/12/19 10:59 02/12/19 10:59 02/12/19 10:59 02/12/19 10:59 Intake & Output 02/11/19 02/12/19 02/13/19 06:59 06:59 06:59 Intake Total 2298 820 Output Total 1445 1270 Balance 853 -450 Weight 112.2 kg 112.5 kg General appearance: PRESENT: no acute distress Head exam: PRESENT: atraumatic Eye exam: PRESENT: conjunctiva pink Mouth exam: PRESENT: moist Neck exam: PRESENT: full ROM Respiratory exam: PRESENT: clear to auscultation luna Cardiovascular exam: PRESENT: RRR Pulses: PRESENT: normal radial pulses, normal femoral pulses GI/Abdominal exam: PRESENT: other - stomal now productive of stool Rectal exam: PRESENT: deferred Gentrourinary exam: PRESENT: ecchymosis Extremities exam: PRESENT: full ROM Musculoskeletal exam: PRESENT: full ROM Neurological exam: PRESENT: alert, awake, oriented to person Psychiatric exam: PRESENT: appropriate affect Skin exam: PRESENT: dry Results Laboratory Results: 02/12/19 06:30 02/12/19 06:30 02/12/19 02/12/19 06:30 06:30 WBC 7.5 RBC 2.98 L Hgb 8.9 L Hct 26.7 L MCV 90 MCH 29.8 MCHC 33.3 RDW 13.6 Plt Count 208 Seg Neutrophils % 63.5 Lymphocytes % 20.1 Monocytes % 8.1 Eosinophils % 7.7 H Basophils % 0.6 Absolute Neutrophils 4.7 Absolute Lymphocytes 1.5 Absolute Monocytes 0.6 Absolute Eosinophils 0.6 Absolute Basophils 0.0 Sodium 137.8 Potassium 4.5 Chloride 103 Carbon Dioxide 31 H Anion Gap 4 L BUN 5 L Creatinine 0.81 Est GFR ( Amer) > 60 Est GFR (Non-Af Amer) > 60 Glucose 85 Calcium 7.5 L Impressions: Chest X-Ray 01/29/19 09:35 IMPRESSION: No acute findings. Multiple old left rib fractures with adjacent pleural thickening KUB X-Ray 02/05/19 14:49 IMPRESSION: No metallic foreign body in the abdomen to correspond to missing surgical instrument. Assessment & Plan - Plan Summary Plan Summary: stoma now functioning \ will have home health planning see for poss discharge in 1-2 days will advance diet hep lock iv.
[2019-02-13] MEDS: OXYCODONE-ACETAMINOPHEN 5-325 MG TABLET PO PRN ×4 (00:22→16:35)
[2019-02-13] MEDS: HEPARIN SOD (PORCINE) 5,000 UNIT/ML 1 ML SYRINGE SUBCUT SCH ×3 (05:55→21:49)
[2019-02-13 06:21] LABS: ABSOLUTE EOSINOPHILS # (AUTO) 0.6 10^3/uL (0.0-0.6); ABSOLUTE LYMPHOCYTES (AUTO) 2.1 10^3/uL (0.5-4.7); ABSOLUTE MONOCYTES (AUTO) 0.6 10^3/uL (0.1-1.4); BASOPHILS % (AUTO) 0.6 % (0-2); EOSINOPHILS % (AUTO) 8.4 % (0-6); HEMATOCRIT 27.4 % (37.9-51.0); HEMOGLOBIN 9.1 g/dL (13.5-17.0); LYMPHOCYTES % (AUTO) 28.2 % (13-45); MEAN CORPUSCULAR HGB CONC 33.3 g/dL (32.0-36.0); MEAN CORPUSCULAR VOLUME 90 fl (80-97); MONOCYTES % (AUTO) 8.2 % (3-13); PLATELET COUNT 237 10^3/uL (150-450); RED BLOOD COUNT 3.04 10^6/uL (4.35-5.55); RED CELL DISTRIBUTION WIDTH 14.1 % (11.5-14.0); SEGMENTED NEUTROPHILS % (AUTO) 54.6 % (42-78); TOTAL CELLS COUNTED % (AUTO) 100 %; WHITE BLOOD COUNT 7.3 10^3/uL (4.0-10.5)
[2019-02-13 06:41] LABS: ANION GAP 5 (5-19); BLOOD UREA NITROGEN 6 mg/dL (7-20); CALCIUM 7.5 mg/dL (8.4-10.2); CARBON DIOXIDE 29 mmol/L (22-30); CHLORIDE 104 mmol/L (98-107); GLUCOSE 72 mg/dL (75-110); POTASSIUM 4.7 mmol/L (3.6-5.0); SODIUM 137.5 mmol/L (137-145)
--- NOTE | 2019-02-13 09:45 | PDOC PROGRESS REPORT ---
Subjective Progress Note for:: 02/13/19 Subjective:: feels ok, juan reg diet Reason For Visit: RECTAL CANCER Physical Exam Vital Signs: Temp Pulse Resp BP Pulse Ox 97.5 F 88 18 122/76 92 02/13/19 08:22 02/13/19 08:22 02/13/19 08:22 02/13/19 08:22 02/13/19 08:22 Intake & Output 02/12/19 02/13/19 02/14/19 06:59 06:59 06:59 Intake Total 820 1100 Output Total 1270 1280 Balance -450 -180 Weight 112.5 kg 112.5 kg General appearance: PRESENT: no acute distress Head exam: PRESENT: normocephalic Eye exam: PRESENT: EOMI Mouth exam: PRESENT: moist Teeth exam: PRESENT: poor dentation Neck exam: PRESENT: full ROM Respiratory exam: PRESENT: clear to auscultation luna, crackles Cardiovascular exam: PRESENT: RRR Pulses: PRESENT: normal radial pulses, normal femoral pulses Vascular exam: PRESENT: normal capillary refill GI/Abdominal exam: PRESENT: other - wound clean gonzález serous will dc gonzález Rectal exam: PRESENT: deferred Extremities exam: PRESENT: full ROM Musculoskeletal exam: PRESENT: ambulatory Neurological exam: PRESENT: alert, awake, oriented to person, oriented to place Psychiatric exam: PRESENT: appropriate affect Results Laboratory Results: 02/13/19 06:00 02/13/19 06:00 02/13/19 02/13/19 06:00 06:00 WBC 7.3 RBC 3.04 L Hgb 9.1 L Hct 27.4 L MCV 90 MCH 30.0 MCHC 33.3 RDW 14.1 H Plt Count 237 Seg Neutrophils % 54.6 Lymphocytes % 28.2 Monocytes % 8.2 Eosinophils % 8.4 H Basophils % 0.6 Absolute Neutrophils 4.0 Absolute Lymphocytes 2.1 Absolute Monocytes 0.6 Absolute Eosinophils 0.6 Absolute Basophils 0.0 Sodium 137.5 Potassium 4.7 Chloride 104 Carbon Dioxide 29 Anion Gap 5 BUN 6 L Creatinine 0.98 Est GFR ( Amer) > 60 Est GFR (Non-Af Amer) > 60 Glucose 72 L Calcium 7.5 L Impressions: Chest X-Ray 01/29/19 09:35 IMPRESSION: No acute findings. Multiple old left rib fractures with adjacent pleural thickening KUB X-Ray 02/05/19 14:49 IMPRESSION: No metallic foreign body in the abdomen to correspond to missing kim rgical instrument. Assessment & Plan - Plan Summary Plan Summary: doing ok stoma now productive of stool will dc gonzález today nurse to change appliance today plan on dc hme tomorrow or saturday.
[2019-02-13] MEDS: FAMOTIDINE INJ/PF 20 MG/2 ML SDV IV SCH ×2 (09:47→21:49)
[2019-02-13] MEDS: ONDANSETRON HCL INJ/PF 4 MG/2 ML SDV IV PRN (21:49)
[2019-02-14] MEDS: HEPARIN SOD (PORCINE) 5,000 UNIT/ML 1 ML SYRINGE SUBCUT SCH ×3 (06:05→21:59)
[2019-02-14] MEDS: OXYCODONE-ACETAMINOPHEN 5-325 MG TABLET PO PRN ×4 (06:06→23:51)
[2019-02-14] MEDS: FAMOTIDINE INJ/PF 20 MG/2 ML SDV IV SCH ×2 (09:15→21:59)
--- NOTE | 2019-02-14 18:42 | PDOC PROGRESS REPORT ---
Subjective Progress Note for:: 02/14/19 Subjective:: feels well passing stool Reason For Visit: RECTAL CANCER Physical Exam Vital Signs: Temp Pulse Resp BP Pulse Ox 98.3 F 78 17 112/70 94 02/14/19 16:24 02/14/19 16:24 02/14/19 16:24 02/14/19 16:24 02/14/19 16:24 Intake & Output 02/13/19 02/14/19 02/15/19 06:59 06:59 06:59 Intake Total 1100 460 Output Total 1280 1000 Balance -180 -540 Weight 112.5 kg 113.2 kg General appearance: PRESENT: no acute distress Head exam: PRESENT: normocephalic Eye exam: PRESENT: EOMI Mouth exam: PRESENT: moist Teeth exam: PRESENT: poor dentation Neck exam: PRESENT: full ROM Respiratory exam: PRESENT: clear to auscultation luna Cardiovascular exam: PRESENT: RRR Pulses: PRESENT: +2 pedal pulses bilateral GI/Abdominal exam: PRESENT: normal bowel sounds, soft Rectal exam: PRESENT: deferred Extremities exam: PRESENT: full ROM Musculoskeletal exam: PRESENT: full ROM Neurological exam: PRESENT: alert, oriented to person, oriented to place, oriented to time Psychiatric exam: PRESENT: appropriate affect Skin exam: PRESENT: dry Results Laboratory Results: 02/13/19 06:00 02/13/19 06:00 Impressions: Chest X-Ray 01/29/19 09:35 IMPRESSION: No acute findings. Multiple old left rib fractures with adjacent pleural thickening KUB X-Ray 02/05/19 14:49 IMPRESSION: No metallic foreign body in the abdomen to correspond to missing surgical instrument. Assessment & Plan - Plan Summary Plan Summary: stoma appliance changed yesterday pt now juan reg diet home health being arranged will plan on dc home tomorrowl
[2019-02-15] MEDS: HEPARIN SOD (PORCINE) 5,000 UNIT/ML 1 ML SYRINGE SUBCUT SCH ×2 (06:17→15:14)
[2019-02-15] MEDS: FAMOTIDINE INJ/PF 20 MG/2 ML SDV IV SCH (09:59)
[2019-02-15] MEDS: OXYCODONE-ACETAMINOPHEN 5-325 MG TABLET PO PRN ×2 (10:06→14:27)
[2019-02-15 13:27] VITALS: BP 119/76
--- NOTE | 2019-02-15 18:44 | DISCHARGE SUMMARY E ---
Discharge Summary NAME: JIM THOMAS : 1955 AGE: 63Y ADMITTED: 02/05/2019 DISCHARGED: 02/15/2019 ADMISSION DIAGNOSIS: HISTORY OF RECTOSIGMOID CANCER. DISCHARGE DIAGNOSIS: RECURRENT RECTOSIGMOID CANCER. OPERATIONS/PROCEDURES: LAPAROSCOPIC CONVERTED TO OPEN SIGMOID COLECTOMY WITH COLOSTOMY. REASON FOR HOSPITALIZATION/HOSPITAL COURSE: This is a 63-year-old male who was admitted on 02/06/2019 for an elective sigmoid colon resection. He had a previous history of sigmoid rectal carcinoma that was treated in [place] with chemotherapy. He had complete resolution of the tumor and underwent endoscopy here by Dr. Melendez about a month and a half prior to his admission. He was noted to have a stricture there, but on multiple repeat biopsies and PET scans, there was no evidence of recurrent CA. He was taken to surgery for a surgical resection because of the stricture, and at that time we noted recurrent tumor in his pelvis. Therefore, he underwent a colostomy. Postoperatively, he has had a routine postop course. He has been doing well. He was initially started on sips of clears which were slowly advanced. He has remained afebrile with stable vital signs throughout his entire course. After approximately 5 days postop, his stoma started becoming productive and his diet was slowly advanced. Discharge Planning has seen the patient in the hospital for followup with Home Health, and that will be accomplished for his stoma care. He has a follow-up appointment with Oncology, Dr. Ortiz, and with me in one week after discharge. He is to be discharged today. DISCHARGE MEDICATIONS: Percocet 5/325 mg 1 p.o. q.6 as needed for pain. DICTATING PHYSICIAN: MARIETTA TODD M.D. [id number] PHY#: [id number] ID: [id number] JOB#: [id number] ACCT: [id number] cc:MARIETTA TODD M.D. >
--- NOTE | 2019-02-15 19:39 | DISCHARGE SUMMARY E ---
Discharge Summary NAME: JIM THOMAS : 1955 AGE: 63Y ADMITTED: 02/05/2019 DISCHARGED: FINAL DIAGNOSIS: DICTATING PHYSICIAN: MARIETTA TODD M.D. [id number] PHY#: [id number] ID: [id number] JOB#: [id number] ACCT: [id number] cc:MARIETTA TODD M.D. >
--- NOTE | 2019-02-24 15:11 | DISCHARGE SUMMARY E ---
Discharge Summary NAME: JIM THOMAS : 1955 AGE: 63Y ADMITTED: 02/05/2019 DISCHARGED: 02/15/2019 ADDENDUM: During the patient's hospitalization he received 2 units of packed red blood cells shortly after his operative procedure. This was secondary to acute blood loss during the planned surgery. DICTATING PHYSICIAN: MARIETTA TODD M.D. [id number] PHY#: [id number] ID: [id number] JOB#: [id number] ACCT: [id number] cc:MARIETTA TODD M.D. >
== END 2019-02-15 16:01 | disposition home health service (06) | DRG 330 ==
LOC: INOR 07:25 → 5 17:25
PROVIDERS: ADMIT Surgery; ATTEND Surgery
PROC: 0D1N0Z4 Bypass Sigmoid Colon to Cutaneous, Open Approach (ICD-10-PCS; 2019-02-05)
PROC: 0DBP0ZZ Excision of Rectum, Open Approach (ICD-10-PCS; 2019-02-05)
PROC: 0DTN0ZZ Resection of Sigmoid Colon, Open Approach (ICD-10-PCS; principal; 2019-02-05 09:30)
PROC: 30233N1 Transfusion of Nonautologous Red Blood Cells into Peripheral Vein, Percutaneous Approach (ICD-10-PCS; 2019-02-07)
DX: C19 Malignant neoplasm of rectosigmoid junction (principal); C78.7 Secondary malignant neoplasm of liver and intrahepatic bile duct; C78.00 Secondary malignant neoplasm of unspecified lung; C79.00 Secondary malignant neoplasm of unspecified kidney and renal pelvis; D62 Acute posthemorrhagic anemia; E86.0 Dehydration; Z51.11 Encounter for antineoplastic chemotherapy; Z79.899 Other long term (current) drug therapy; Z53.31 Laparoscopic surgical procedure converted to open procedure
CPT/HCPCS: 00840; 36415; 36430; 71046; 74018; 80048; 82962; 85025; 85027; 85610; 85730; 86850; 86900; 86901; 86920; 88304; 88305; 88309; 88331; 93005; 93010; J0131; J0690; J1100; J1170; J1642; J1644; J1885; J2250; J2270; J2405; J2704; J2710; J3010; J3230; J3490; J7120; J7121; P9016; Q9968; S0028

== ENCOUNTER → 2019-02-22 | Outpatient (CLI) | payer MEDICARE, MEDICAID ==
--- NOTE | 2019-02-23 13:04 | RADIOLOGY REPORT (SQ) ---
EXAM DESCRIPTION: PET CT SKULL/THIGH COMPLETED DATE/TIME: 02/22/2019 6:32 pm REASON FOR STUDY: MALIGNANT NEOPLASM OF SIGMOID COLON C18.7 MALIGNANT NEOPLASM OF SIGMOID COLON COMPARISON: 11/16/2018 RADIONUCLIDE AND DOSE: 11.2 mCi F18 FDG The route of agent administration: Intravenous FASTING BLOOD SUGAR: 92 mg/dl CONTRAST TYPE AND DOSE: No CT contrast given. TECHNIQUE: Blood glucose level was verified. Above dose of FDG was injected intravenously. 2-D seg mented attenuation correction images were obtained from the base of the skull to the midthighs. Nonc ontrast CT images were obtained for attenuation correction and fusion with emission images. CT image s were performed without oral or intravenous contrast and are not sensitive for parenchymal lesions. A series of overlapping emission PET images were obtained. Images reviewed and manipulated at [facility] work station by the radiologist. Images stored on PACS. LIMITATIONS: None. FINDINGS: HEAD AND NECK: No areas of abnormal metabolic activity in the soft tissues of the head and neck. CHEST: Left lower lobe hypermetabolic nodule 3.1 SUV ABDOMEN AND PELVIS: There are 3 lesions in the liver, the largest in segment 8 measuring 4.6 cm with SUV 4.8. 2.5 cm celiac axis lymph node image 45 measuring 3.7 SUV. PROXIMAL LOWER EXTREMITIES: No areas of abnormal metabolic activity in the soft tissues of the lower extremities. BONES: No abnormal metabolic activity in the visualized skeleton. ADDITIONAL CT FINDINGS: In addition to the hypermetabolic lung nodule described above, there are at l east 3 new pulmonary nodules in the right lower lung measuring up to 9 mm. Left side port tip in the SVC. Gastrostomy. Sigmoid colectomy. Left lower quadrant ostomy and fat containing parastomal hernia. OTHER: Liver background 2.5 SUV. Blood pool 1.8 SUV. IMPRESSION: 1. New pulmonary nodules, 1 of which is hypermetabolic and suspicious for metastatic disease. The ot hers could be false negatives due to small size. 2. Hypermetabolic liver lesions and hypermetabolic celiac axis node suspicious for metastatic disease . COMMENT: Liver lesions are amenable to CT-guided biopsy. TECHNICAL DOCUMENTATION: JOB ID: [id number] [employer] All Rights Reserved Reading location - IP/workstation name: [email or web address]
== END ==
LOC: RAD 15:35
PROVIDERS: ATTEND Internal Medicine Medical Oncology
DX: C18.7 Malignant neoplasm of sigmoid colon (principal)
CPT/HCPCS: 78815; A9552

== ENCOUNTER → 2019-05-17 | Outpatient (CLI) | payer MEDICARE, MEDICAID ==
--- NOTE | 2019-05-18 08:35 | RADIOLOGY REPORT (SQ) ---
EXAM DESCRIPTION: PET CT SKULL/THIGH COMPLETED DATE/TIME: 05/17/2019 8:42 pm REASON FOR STUDY: (C18.7)MALIGNANT NEOPLASM OF SIGMOID COLON C18.7 MALIGNANT NEOPLASM OF SIGMOID CO EARL COMPARISON: PET-CT 02/22/2019, 11/28/2018 RADIONUCLIDE AND DOSE: 13.3 mCi F18 FDG The route of agent administration: Intravenous FASTING BLOOD SUGAR: 100 mg/dl CONTRAST TYPE AND DOSE: No CT contrast given. TECHNIQUE: Blood glucose level was verified. Above dose of FDG was injected intravenously. 2-D seg mented attenuation correction images were obtained from the base of the skull to the midthighs. Nonc ontrast CT images were obtained for attenuation correction and fusion with emission images. CT image s were performed without oral or intravenous contrast and are not sensitive for parenchymal lesions. A series of overlapping emission PET images were obtained. Images reviewed and manipulated at [facility] work station by the radiologist. Images stored on PACS. LIMITATIONS: None. FINDINGS: HEAD AND NECK: No areas of abnormal metabolic activity in the soft tissues of the head and neck. CHEST: There is a new 7 mm nodule in the left lung apex on axial image 60. SUV measurements are diff icult to obtain in this lesion. There are 2 right upper lobe nodules just above the minor fissure with metabolic activity each measur ing 13 mm in size, with SUV ranging from 3.2 to 3.6 (these were 8 to 9 mm diameter 02/22/2019). Unchanged left lower lobe 10 mm nodule with SUV of 1.4. ABDOMEN AND PELVIS: Multiple liver metastatic lesions are present, the largest is in the right lobe l iver cyst sub- diaphragmatic surface segment 8. This currently measures 8 x 4 cm in size with SUV of 14 along the periphery anteriorly. There is central necrosis within this lesion (measured 4.6 cm gr eatest diameter with SUV 4.8 on 02/22/2019 PET-CT). Enlarged celiac lymph node is present 2.6 x 1.8 cm in size on axial image 141 with SUV 4.7 (was 2.6 c m greatest diameter with SUV 3.7 on 02/22/2019). Along the rectum, a 2.5 x 1.5 cm metabolically active nodule is present with SUV 10.9. This is new c ompared to PET-CT 02/22/2019. PROXIMAL LOWER EXTREMITIES: No areas of abnormal metabolic activity in the soft tissues of the lower extremities. BONES: No abnormal metabolic activity in the visualized skeleton. ADDITIONAL CT FINDINGS: Left-sided permanent central line tip superior vena cava. Gastrostomy tube. Left lower quadrant ostomy with herniation of mesenteric fat through the defect. Sigmoid colectomy with dolly along the small Yanick's pouch. Old left lower rib fractures OTHER: Liver background activity 2.6 SUV. Blood pool background activity 2.1 SUV IMPRESSION: New rectal hypermetabolic nodule Increase in activity of liver metastatic lesions and celiac lymph node Increase in size and number of lung lesions. TECHNICAL DOCUMENTATION: JOB ID: [id number] [employer] All Rights Reserved Reading location - IP/workstation name: [email or web address]
== END ==
LOC: RAD 14:59
PROVIDERS: ATTEND Internal Medicine Medical Oncology
DX: C18.7 Malignant neoplasm of sigmoid colon (principal)
CPT/HCPCS: 78815; A9552

== ENCOUNTER → 2019-07-05 | Outpatient (CLI) | payer MEDICARE, MEDICAID ==
--- NOTE | 2019-07-06 09:42 | RADIOLOGY REPORT (SQ) ---
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 RADIONUCLIDE AND DOSE: 10 mCi F18 FDG The route of agent administration: Intravenous FASTING BLOOD SUGAR: 98 mg/dl CONTRAST TYPE AND DOSE: No CT contrast given. TECHNIQUE: Blood glucose level was verified. Above dose of FDG was injected intravenously. 2-D seg mented attenuation correction images were obtained from the base of the skull to the midthighs. Nonc ontrast CT images were obtained for attenuation correction and fusion with emission images. CT image s were performed without oral or intravenous contrast and are not sensitive for parenchymal lesions. A series of overlapping emission PET images were obtained. Images reviewed and manipulated at [facility] work station by the radiologist. Images stored on PACS. LIMITATIONS: None. FINDINGS: HEAD AND NECK: No areas of abnormal metabolic activity in the soft tissues of the head and neck. CHEST: Previously seen lung nodules appear relatively unchanged. The largest nodules are in the righ t upper lobe and measure 1.4 cm (image 92) and 1.1 cm (image 93). Corresponding mean SUV values are 4.05 and 2.3 with prior values 3.2 and 3.6. Other smaller pulmonary nodules are unchanged and are no t noticeably hypermetabolic. ABDOMEN AND PELVIS: Numerous liver lesions as follows: 1.2 cm lesion in the left lobe (image 108) with mean SUV 7.54. 1.0 cm lesion in the left lobe (image 111) with mean SUV 5.47. 2.5 cm lesion in the right lobe (image 119) with mean SUV 9.49. 1.8 cm lesion in the caudate lobe (image 123) with mean SUV 5.82. 1.6 cm lesion in the right lobe (image 127) with mean SUV 8.28. 9 mm lesion in the left lobe (image 127) with mean SUV 4.85. These liver lesions appear relatively unchanged on CT images. Mean SUV value of the largest lesion h as decreased from 14. Lymph nodes in the lorie hepatis/celiac axis region measuring 2.9 cm (image 131) with mean SUV 5.02. Prior measurement 2.6 cm with mean SUV 4.7. Nodule on the right side of the rectum measures 1.3 cm (image 225) with mean SUV 5.06. Prior measure ment 2.5 cm with mean SUV 10.9. PROXIMAL LOWER EXTREMITIES: No areas of abnormal metabolic activity in the soft tissues of the lower extremities. BONES: There is now extensive abnormal activity throughout the skeleton. Multiple lesions involving numerous vertebrae, ribs, sternum, clavicles, and pelvis. ADDITIONAL CT FINDINGS: Renal cysts. Left lower quadrant colostomy. No additional significant findi ngs on the noncontrast CT images. OTHER: Background blood pool activity mean SUV 1.95. Background liver activity mean SUV 2.59. No ot her significant findings. IMPRESSION: 1. INTERVAL DEVELOPMENT OF EXTENSIVE BONY METASTASES. 2. LUNG NODULES DESCRIBED ABOVE APPEAR RELATIVELY UNCHANGED. 3. MULTIPLE METASTATIC LESIONS IN THE LIVER APPEAR RELATIVELY UNCHANGED ON CT SCAN. MEAN SUV OF THE LARGEST LESION HAS DECREASED. 4. LYMPH NODES IN THE LORIE HEPATIS/CELIAC AXIS REGION ARE SLIGHTLY LARGER WITH SLIGHT INCREASE IN AC TIVITY. 5. NODULE ON THE RIGHT SIDE OF THE RECTUM IS CURRENTLY SMALLER WITH DECREASE IN ACTIVITY. TECHNICAL DOCUMENTATION: JOB ID: [id number] [employer]- All Rights Reserved Reading location - IP/workstation name: [email or web address]
== END ==
LOC: RAD 14:54
PROVIDERS: ATTEND Internal Medicine Medical Oncology
DX: C18.7 Malignant neoplasm of sigmoid colon (principal)
CPT/HCPCS: 78815; A9552

== ENCOUNTER → 2019-08-26 | Outpatient (CLI) | payer MEDICARE, MEDICAID ==
--- NOTE | 2019-08-26 16:23 | RADIOLOGY REPORT (SQ) ---
EXAM DESCRIPTION: CTA CHEST COMPLETED DATE/TIME: 08/26/2019 4:06 pm REASON FOR STUDY: R06.02 SHORTNESS OF BREATH R06.02 SHORTNESS OF BREATH C79.51 SECONDARY MALIGNANT NEOPLASM OF BONE COMPARISON: None. TECHNIQUE: CT scan of the chest performed using helical scanning technique with dynamic intravenous contrast injection. Images reviewed with lung, soft tissue and bone windows. Reconstructed coronal and sagittal MPR images reviewed. Additional 3 dimensional post-processing performed to develop Maximal Intensity Projection images (KS P). All images stored on PACS. All CT scanners at this facility use dose modulation, iterative reconstruction, and/or weight based d osing when appropriate to reduce radiation dose to as low as reasonably achievable (ALARA). [facility]: Dose Right [facility]: CareDose [facility]: Dose Right [facility]: Teradose 4D [facility]: [email or web address] CONTRAST TYPE AND DOSE: contrast/concentration: Isovue 350.00 mg/ml; Total Contrast Delivered: 58.0 ml; Total Saline Delivered: 80.0 ml Contrast bolus optimized for the pulmonary arteries. Not diagnostic for the aorta. RENAL FUNCTION: Creatinine 1.1 RADIATION DOSE: CT Rad equipment meets quality standard of care and radiation dose reduction techniq ues were employed. CTDIvol: 7.8 - 19.8 mGy. DLP: 2240 mGy-cm. . LIMITATIONS: None. FINDINGS: LUNGS AND PLEURA: There are postsurgical changes on the left. Bilateral parenchymal nodul es consistent with metastatic disease grossly unchanged from prior PET. There is some scarring now p resent the left upper lobe which is new from prior exam. AORTA AND GREAT VESSELS: No aneurysm. Contrast bolus not optimized for the aorta. HEART: No pericardial effusion. No significant coronary artery calcifications. PULMONARY ARTERIES: No emboli visualized in the main pulmonary arteries or the segmental branches. HILAR AND MEDIASTINAL STRUCTURES: Occasional small mediastinal nodes are present. These are nonspeci fic. HARDWARE: [id number] is in place. UPPER ABDOMEN: There is metastatic disease in the liver. THYROID AND OTHER SOFT TISSUES: No masses. No adenopathy. BONES: No acute or significant finding. 3D MIPS: Confirm above findings. OTHER: No other significant finding. IMPRESSION: 1. No pulmonary emboli. 2. Bilateral pulmonary nodules consistent with metastatic disease. 3. Hepatic lesions suspicious for metastatic disease as well. COMMENT: Quality ID # 436: Final reports with documentation of one or more dose reduction techniques (e.g., Automated exposure control, adjustment of the mA and/or kV according to patient size, use of iterative reconstruction technique) TECHNICAL DOCUMENTATION: JOB ID: [id number] [employer] ([employer])- All Rights Reserved Reading location - IP/workstation name: [email or web address]
--- NOTE | 2019-08-26 16:32 | RADIOLOGY REPORT (SQ) ---
EXAM DESCRIPTION: CT ABD/PELVIS WITH IV ORAL COMPLETED DATE/TIME: 08/26/2019 4:08 pm REASON FOR STUDY: C79.51 SECONDARY MALIGNANT NEOPLASM OF BONE R06.02 SHORTNESS OF BREATH C79.51 SE CONDARY MALIGNANT NEOPLASM OF BONE COMPARISON: PET-CT dated 07/05/2019 TECHNIQUE: CT scan of the abdomen and pelvis performed using helical scanning technique with dynamic intravenous contrast injection. No oral contrast. Images reviewed with lung, soft tissue, and bone windows. Reconstructed coronal and sagittal MPR images reviewed. Delayed images for evaluation of the urinary system also acquired. All images stored on PACS. All CT scanners at this facility use dose modulation, iterative reconstruction, and/or weight based d osing when appropriate to reduce radiation dose to as low as reasonably achievable (ALARA). [facility]: Dose Right [facility]: CareDose [facility]: Dose Right [facility]: Teradose 4D [facility]: [employer] CONTRAST TYPE AND DOSE: 58 mL Omnipaque 350 RENAL FUNCTION: Creatinine 1.1 RADIATION DOSE: . LIMITATIONS: None. FINDINGS: LOWER CHEST: Postsurgical changes on the left. LIVER: Numerous hepatic lesions consistent with metastatic disease. Not significantly changed from p rior PET-CT. SPLEEN: Normal size. No focal lesions. PANCREAS: No masses. No significant calcifications. No adjacent inflammation or peripancreatic fluid collections. Pancreatic duct not dilated. GALLBLADDER: No identified stones by CT criteria. No inflammatory changes to suggest cholecystitis. ADRENAL GLANDS: No significant masses or asymmetry. RIGHT KIDNEY AND URETER: Stable right renal cysts. No significant calcifications. No hydronephros is or hydroureter. LEFT KIDNEY AND URETER: Stable cortical left renal cyst. No significant calcifications. No hydron ephrosis or hydroureter. AORTA AND VESSELS: No aneurysm. No dissection. Renal arteries, SMA, celiac without stenosis. RETROPERITONEUM: No retroperitoneal adenopathy, hemorrhage or masses. BOWEL AND PERITONEAL CAVITY: Ostomy site in the left lower quadrant. No obstruction. Small nodule i n the pelvis on the right side of the rectum is unchanged. APPENDIX: Not visualized. PELVIS: Slight thickening of the bladder wall but the bladder is nondistended. ABDOMINAL WALL: Postsurgical changes. BONES: Bone mets noted on PET on not apparent on CT images. OTHER: No other significant finding. IMPRESSION: Grossly stable metastatic disease in the liver. No acute findings in the abdomen or pel vis. TECHNICAL DOCUMENTATION: JOB ID: [id number] Quality ID # 436: Final reports with documentation of one or more dose reduction techniques (e.g., Au tomated exposure control, adjustment of the mA and/or kV according to patient size, use of iterative reconstruction technique) 2010 [employer]- All Rights Reserved Reading location - IP/workstation name: [email or web address]
== END ==
LOC: RAD 13:21
PROVIDERS: ATTEND Internal Medicine Hematology & Oncology
DX: C78.02 Secondary malignant neoplasm of left lung (principal); C78.01 Secondary malignant neoplasm of right lung; C78.7 Secondary malignant neoplasm of liver and intrahepatic bile duct; C79.51 Secondary malignant neoplasm of bone; Z85.038 Personal history of other malignant neoplasm of large intestine
CPT/HCPCS: 71275; 74177; 82565

== ENCOUNTER → 2019-10-15 | Outpatient (CLI) | payer MEDICARE, MEDICAID ==
--- NOTE | 2019-10-15 15:38 | RADIOLOGY REPORT (SQ) ---
EXAM DESCRIPTION: CHEST 2 VIEWS COMPLETED DATE/TIME: 10/15/2019 2:51 pm REASON FOR STUDY: SHORTNESS OF BREATH COMPARISON: 01/29/2019 EXAM PARAMETERS: NUMBER OF VIEWS: two views TECHNIQUE: Digital Frontal and Lateral radiographic views of the chest acquired. RADIATION DOSE: NA LIMITATIONS: none FINDINGS: LUNGS AND PLEURA: Postsurgical changes left lung. Enlarging pulmonary nodules in both jas gs. No effusion. MEDIASTINUM AND HILAR STRUCTURES: No masses or contour abnormalities. HEART AND VASCULAR STRUCTURES: Stable heart size. No evidence for failure. BONES: No acute findings. HARDWARE: None in the chest. OTHER: Unchanged position of left-sided port. IMPRESSION: Progressive pulmonary metastasis. No superimposed pneumonia. TECHNICAL DOCUMENTATION: JOB ID: [id number] [employer]- All Rights Reserved Reading location - IP/workstation name: [email or web address]
== END ==
LOC: RAD 14:21
PROVIDERS: ATTEND Nurse Practitioner Family
DX: R06.02 Shortness of breath (principal)
CPT/HCPCS: 71046

== ENCOUNTER → 2019-10-20 | Outpatient (CLI) | payer MEDICARE, MEDICAID ==
--- NOTE | 2019-10-21 11:15 | RADIOLOGY REPORT (SQ) ---
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 RADIONUCLIDE AND DOSE: 9.97 mCi F18 FDG The route of agent administration: Intravenous FASTING BLOOD SUGAR: 100 mg/dl CONTRAST TYPE AND DOSE: No CT contrast given. TECHNIQUE: Blood glucose level was verified. Above dose of FDG was injected intravenously. 2-D seg mented attenuation correction images were obtained from the base of the skull to the midthighs. Nonc ontrast CT images were obtained for attenuation correction and fusion with emission images. CT image s were performed without oral or intravenous contrast and are not sensitive for parenchymal lesions. A series of overlapping emission PET images were obtained. Images reviewed and manipulated at [facility] work station by the radiologist. Images stored on PACS. LIMITATIONS: None. FINDINGS: HEAD AND NECK: There is increased symmetric metabolic activity within the paraspinal muscu lature. CHEST: The trachea and main bronchi are patent. The bilateral pulmonary nodules have increased in si ze from the prior CT and PET ; for reference the 18 x 17 mm nodule in the right upper lobe on image 8 7 of series 3 measured 14 x 14 mm on the prior CT and 12 x 12 mm on the prior PET and the 10 x 10 mm nodule in the left upper lobe (image 61 of series 3 measured 5 mm on the prior CT and PET ; the inten sity of FDG uptake within the nodules has also increased in the interim ; for reference the aforement ioned 18 x 17 mm nodule in the right upper lobe has a maximum SUV of 7.3 (average liver SUV of 2.6) c ompared to 5.2 on the prior PET (prior average SUV of 2.6;. In addition, the patient has developed a reas of nodular ground-glass opacification in a centrilobular distribution in the right upper lobe an d to a lesser extent the left lower lobe ; these areas demonstrate varying degrees of increased FDG u ptake that range in intensity up to 8.3 (the focal area of ground-glass opacification in the right up per lobe on image 89 of series 3). There is no hypermetabolic thoracic adenopathy. ABDOMEN AND PELVIS: The average liver SUV equals 2.6. On the nondiagnostic CT a number of the hypod ense hepatic lesions have increased in size, however on PET the FDG uptake within the lesions is more heterogeneous and the intensity of the uptake within the lesions has decreased ; for reference the 2 .2 x 1.3 cm hypodense lesion in the hepatic dome (image 104 of series 3) previously measured 1.5 x 1. 2 cm and the uptake within the lesion measured 10.2 compared to 5.4 on the current PET and the 2.4 x 2.1 cm lesion within segment 6 of the liver (image 121 of series 3) previously measured 1.9 x 1.5 cm and the uptake within the lesion measured 9.3 compared to 6.3. There nodular cluster of lymph nodes around the main portal vein on image 125 of series 3 is unchanged from the prior PET. The intensity of FDG uptake within the right pararectal nodule (image 222 of series 3) has increased and it measure s 8.9 compared to 7 on the prior PET. PROXIMAL LOWER EXTREMITIES: No areas of abnormal metabolic activity in the soft tissues of the lower extremities. BONES: There is focal increased FDG uptake within the anterior right 3rd rib (image 90 of series 3) w ith a maximum SUV of 8.3. Overall the extent of osseous uptake of the FDG has decreased compared to the prior PET. ADDITIONAL CT FINDINGS: The tip of the left subclavian approach port projects within the SVC. The le ft ventricle is enlarged. There is no pericardial effusion. There is a trace amount of free fluid i n the left pleural space. The spleen is normal in size. The nodular appearance of the left adrenal gland is unchanged. There is no abnormality of the pancreas. There are bilateral renal cysts. Ther e is no hydronephrosis, hydroureter, nephrolithiasis or ureterolithiasis. The prostate gland is enla rged. The urinary bladder is partially distended. The patient is status post colectomy with creatio n of a Yanick's pouch and a diverting colostomy. There is a ventral laparotomy incision in the inf raumbilical region. There is no bowel obstruction, bowel wall thickening, or pericolonic/perienteric inflammation. The appendix is normal. OTHER: No other findings. IMPRESSION: Despite the relative decrease in the degree of FDG uptake within the hepatic lesions the overall findings are consistent with metabolic progression of metastatic disease given the increase in the size of the pulmonary nodules, the increased intensity of FDG uptake within the right pararect al nodule, and the new hypermetabolic ground-glass opacities. COMMENT: Consider bone scan for evaluation of osseous metastases. TECHNICAL DOCUMENTATION: JOB ID: [id number] [employer]- All Rights Reserved Reading location - IP/workstation name: [email or web address]
== END ==
LOC: RAD 10:59
PROVIDERS: ATTEND Internal Medicine
DX: C18.6 Malignant neoplasm of descending colon (principal)
CPT/HCPCS: 78815; A9552

== ENCOUNTER 2019-10-26 09:13 | Day surgery (SDC) | payer MEDICARE, MEDICAID ==
[2019-10-26 10:17] LABS: HEMATOCRIT 31.2 % (37.9-51.0); HEMOGLOBIN 10.2 g/dL (13.5-17.0); MEAN CORPUSCULAR HEMOGLOBIN 31.1 pg (27.0-33.4); MEAN CORPUSCULAR HGB CONC 32.6 g/dL (32.0-36.0); MEAN CORPUSCULAR VOLUME 95 fl (80-97); PLATELET COUNT 132 10^3/uL (150-450); RED BLOOD COUNT 3.28 10^6/uL (4.35-5.55); RED CELL DISTRIBUTION WIDTH 17.1 % (11.5-14.0); WHITE BLOOD COUNT 4.3 10^3/uL (4.0-10.5)
[2019-10-26 10:26] LABS: BLOOD UREA NITROGEN 14 mg/dL (7-20)
[2019-10-26 11:41] LABS: INTERNATIONAL RATION (INR) 1.21; PROTHROMBIN TIME 15.4 SEC (11.4-15.4)
[2019-10-26 11:42] LABS: PARTIAL THROMBOPLASTIN TIME 33.5 SEC (23.5-35.8)
[2019-10-26] MEDS ORDERED: MIDAZOLAM 2 MG/2 ML INJ ONE (12:20)
[2019-10-26] MEDS ORDERED: FENTANYL CITRATE INJ/PF 100 MCG/2 ML AMPUL ONE (12:20)
--- NOTE | 2019-10-26 13:59 | RADIOLOGY REPORT (SQ) ---
EXAM DESCRIPTION: CT NEEDLE PLACEMENT COMPLETE DATE/TIME: 10/26/2019 1:28 pm REASON FOR STUDY: MALIGNANT NEOPLASM OF DESCENDING COLON, LUNG BIOPSY C18.6 MALIGNANT NEOPLASM OF D ESCENDING COLON Z79.899 OTHER [facility]DC (CURRENT) DRUG THERAPY Z79.01 [facility]DC (CURRENT) USE OF AN TICOAGULANTS FINDINGS: Please see combined report for performance of procedure and radiologic supervision and int erpretation. IMPRESSION: Please see combined report for performance of procedure and radiologic supervision and i nterpretation. Reading location - IP/workstation name: [email or web address]
--- NOTE | 2019-10-26 14:01 | RADIOLOGY REPORT (SQ) ---
EXAM DESCRIPTION: CT BIOPSY LIVER COMPLETED DATE/TIME: 10/26/2019 1:28 pm REASON FOR STUDY: MALIGNANT NEOPLASM OF DESCENDING COLON C18.6 MALIGNANT NEOPLASM OF DESCENDING COL ON Z79.899 OTHER HEMODIALYSIS RN (CURRENT) DRUG THERAPY Z79.01 HEMODIALYSIS RN (CURRENT) USE OF ANTICOAGULANTS COMPARISON: PET-CT dated 10/20/2019 TECHNIQUE: After obtaining informed consent and explaining the risks and benefits of conscious sedat ion,the patient agreed to the procedure. The patient was brought to the CT suite and was placed supin e on the CT gurney. The patient was prepped and draped in the usual sterile fashion. Axial images we re obtained for targeting of themass in the right lobe of liver. An appropriate access site was selec harley. IV conscious sedation was administered and physician direction by the registered nurse using 1.0 milligrams of Versed and 25 micrograms of fentanyl. Physiologic monitoring was provided before, duri ng, and after sedation. The total sedation time was 15 minutes. Documentation face to face time, the performing proceduralist, spent monitoring the patient: [address] of the liver was performed to localize an approach for the liver mass biopsy. A pe rcutaneous site was marked. Time out was performed. After skin prep and local lidocaine for skin and deep tissue anesthesia, a coaxial biopsy needle sys tem was used to obtain 5 cores of tissue from the right hepatic lobe mass. These were submitted to t he lab in formalin. No immediate postprocedure complications. Total of 6.[address] fluoro was used. 36 CT Fluoroscopic images were obtained and saved to PACS. All CT scanners at this facility use dose modulation, iterative reconstruction, and/or weight based d osing when appropriate to reduce radiation dose to as low as reasonably achievable (ALARA). [facility]: Dose Right [facility]: CareDose [facility]: Dose Right [facility]: Teradose 4D [facility]: [employer] RADIATION DOSE: CT Rad equipment meets quality standard of care and radiation dose reduction techniq ues were employed. CTDIvol: 4.0 - 19.7 mGy. DLP: 547 mGy-cm. mGy. LIMITATIONS: None. FINDINGS: CT guided liver biopsy as detailed above. IMPRESSION: Successful CT-guided biopsy of the mass in the inferior right lobe of the liver. COMMENT: Patient medication list reviewed:Yes- Quality ID# [id number]:Eligible professional attests to docu menting in the medical record they obtained, updated, or reviewed the patient's current medications.. Quality ID 145: Final reports for procedures using fluoroscopy that document radiation exposure tavo corey, or exposure time and number of fluorographic images (if radiation exposure indices are not avail able) TECHNICAL DOCUMENTATION: JOB ID: [id number] Quality ID # 436: Final reports with documentation of one or more dose reduction techniques (e.g., A utomated exposure control, adjustment of the mA and/or kV according to patient size, use of iterative reconstruction technique) 2010 [employer]- All Rights Reserved Reading location - IP/workstation name: [email or web address]
[2019-10-26 16:05] VITALS: BP 110/71
== END 2019-10-26 15:35 | disposition home or self-care (01) ==
LOC: RAD 09:13
PROVIDERS: ATTEND Internal Medicine Hematology & Oncology
DX: C18.6 Malignant neoplasm of descending colon (principal); Z79.899 Other long term (current) drug therapy; Z79.01 Long term (current) use of anticoagulants; E11.9 Type 2 diabetes mellitus without complications; I10 Essential (primary) hypertension; Z86.718 Personal history of other venous thrombosis and embolism; G89.3 Neoplasm related pain (acute) (chronic); D70.1 Agranulocytosis secondary to cancer chemotherapy; E86.0 Dehydration
CPT/HCPCS: 36415; 84520; 82565; 85027; 85610; 85730; 88342 ×2; 88341 ×2; 88305 ×2; 77012; 47000; J2250; J3010; J1642

== ENCOUNTER → 2019-12-08 | Outpatient (CLI) | payer MEDICARE, MEDICAID ==
--- NOTE | 2019-12-08 10:48 | RADIOLOGY REPORT (SQ) ---
EXAM DESCRIPTION: MRI ABDOMEN WITHOUT COMPLETED DATE/TIME: 12/08/2019 9:35 am REASON FOR STUDY: *MRCP* JAUNDICE (R17), COLON CA (C18.6) C18.6 MALIGNANT NEOPLASM OF DESCENDING CO EARL COMPARISON: None. TECHNIQUE: Noncontrast MRCP. Source and MIP images reviewed. LIMITATIONS: None. FINDINGS: GALLBLADDER: Normal. INTRAHEPATIC DUCTS: Mild dilation, slightly more prominent in the left lobe. Indistinct appearance o f the common hepatic duct at the lorie hepatis. EXTRAHEPATIC DUCTS: Common duct is normal caliber. No dilatation of the pancreatic duct. No ductal filling defects noted. PANCREAS: Generally homogeneous, no gross mass or significant signal alteration. No surrounding infl ammatory changes or fluid. Pancreatic duct is normal. LIVER, SPLEEN, KIDNEYS, ADRENALS: Multiple hepatic lesions. Renal cortical cysts. VESSELS: No evidence of aneurysm. Grossly appropriate flow voids in the major vascular structures. LUNG BASES: Pulmonary nodules. OTHER: No other significant finding. IMPRESSION: 1. NO FILLING DEFECTS IN THE EXTRAHEPATIC DUCTAL SYSTEM. THERE IS INDISTINCT APPEARANCE OF THE COMMO N HEPATIC DUCT AT THE LORIE HEPATIS WITH MILD DILATION OF THE INTRAHEPATIC DUCTS, SLIGHTLY MORE PROMI NENT IN THE LEFT LOBE. SUSPECT COMPRESSION/OBSTRUCTION OF THE BILIARY SYSTEM AT THE LORIE HEPATIS DU E TO HEPATIC LESIONS AND LYMPH NODES. 2. MULTIPLE HEPATIC LESIONS CONSISTENT WITH METASTASES. BILATERAL PULMONARY NODULES IN THE VISUALIZE D LUNG BASES. 3. CORTICAL CYSTS IN THE KIDNEYS. TECHNICAL DOCUMENTATION: JOB ID: [id number] 2010 [employer]- All Rights Reserved Reading location - IP/workstation name: [email or web address]
--- NOTE | 2019-12-08 17:34 | RADIOLOGY REPORT (SQ) ---
EXAM DESCRIPTION: CT CHEST WITH; CT ABD/PELVIS WITH IV ONLY COMPLETED DATE/TIME: 12/08/2019 7:53 am REASON FOR STUDY: COLON CA (C18.6) C18.6 MALIGNANT NEOPLASM OF DESCENDING COLON CONTRAST TYPE AND DOSE: contrast/concentration: Isovue 350.00 mg/ml; Total Contrast Delivered: 99.0 ml; Total Saline Delivered: 72.0 ml RENAL FUNCTION: BUN 13 creatinine 0.6 COMPARISON: 08/26/2019 TECHNIQUE: CT scan of the chest performed using helical scanning technique with dynamic intravenous contrast injection. Images reviewed with lung, soft tissue and bone windows. Reconstructed coronal a nd sagittal MPR images reviewed. All images stored on PACS. All CT scanners at this facility use dose modulation, iterative reconstruction, and/or weight based d osing when appropriate to reduce radiation dose to as low as reasonably achievable (ALARA). [facility]: Dose Right [facility]: CareDose [facility]: Dose Right [facility]: Teradose 4D [facility]: [employer] [facility] RADIATION DOSE: CT Rad equipment meets quality standard of care and radiation dose reduction techniq ues were employed. CTDIvol: 9.8 - 10.1 mGy. DLP: 1651 mGy-cm. . LIMITATIONS: None. FINDINGS: AXILLAE: No adenopathy. CHEST WALL: No masses. No subcutaneous air. LUNGS: Significant increase in size and number of pulmonary nodules. PLEURA: No effusions. No calcifications. THYROID: No masses or significant asymmetry. HILAR AND MEDIASTINAL STRUCTURES: No identified masses or abnormal nodes. AORTA AND GREAT VESSELS: No aneurysm. No dissection. PULMONARY ARTERIES: No identified pulmonary emboli. Study not optimized for the pulmonary arteries. HEART: No pericardial effusion. HARDWARE AND LIFELINES: None. BONES: No significant finding. OTHER: No other significant finding. IMPRESSION: Increasing pulmonary metastatic disease. COMPARISON: None. RADIATION DOSE: CT Rad equipment meets quality standard of care and radiation dose reduction techniq ues were employed. CTDIvol: 9.8 - 10.1 mGy. DLP: 1651 mGy-cm. mGy. TECHNIQUE: CT scan of the abdomen and pelvis performed with intravenous and oral contrast using joanna cj scanning technique with dynamic intravenous contrast injection. Images reviewed with lung, soft tissue and bone windows. Reconstructed coronal and sagittal MPR images reviewed. Delayed images for evaluation of the urinary system also acquired and evaluated. All images stored on PACS. All CT scanners at this facility use dose modulation, iterative reconstruction, and/or weight based d osing when appropriate to reduce radiation dose to as low as reasonably achievable (ALARA). [facility]: Dose Right [facility]: SureCare [facility]: Dose Right [facility]: Teradose 4D [facility]: [employer] [facility] FINDINGS: LIVER: Increasing metastatic disease in the liver. SPLEEN: Normal size. No focal lesions. PANCREAS: No masses. No significant calcifications. No adjacent inflammation or peripancreatic flui d collections. Pancreatic duct not dilated. GALLBLADDER: No identified stones by CT criteria. No inflammatory changes to suggest cholecystitis. ADRENAL GLANDS: No significant masses or asymmetry. RIGHT KIDNEY AND URETER: No solid masses. No significant calcifications. No hydronephrosis or hyd roureter. LEFT KIDNEY AND URETER: No solid masses. No significant calcifications. No hydronephrosis or hydr oureter. AORTA AND VESSELS: No aneurysm. No dissection. Renal arteries, SMA, celiac without stenosis. RETROPERITONEUM: No retroperitoneal adenopathy, hemorrhage or masses. LARGE AND SMALL BOWEL: Left lower quadrant ostomy. APPENDIX: Not identified. ABDOMINAL WALL: No hernia or masses. PERITONEAL CAVITY: No free air. There is a small amount of free fluid in the left upper quadrant and in the pelvis small amount of free fluid. Prostate gland is prominent. PELVIS: No mass or free fluid. Normal bladder. BONES: No significant or acute findings. OTHER: No other significant finding. IMPRESSION: Increasing metastatic disease in the liver. Small amount of free fluid in the abdomen a nd pelvis. TECHNICAL DOCUMENTATION: JOB ID: [id number] Quality ID # [id number]: Final reports with documentation of one or more dose reduction techniques (e.g., Au tomated exposure control, adjustment of the mA and/or kV according to patient size, use of iterative reconstruction technique) 2010 [employer]- All Rights Reserved Reading location - IP/workstation name: [email or web address]
== END ==
LOC: RAD 07:00
PROVIDERS: ATTEND Nurse Practitioner Family
DX: R17 Unspecified jaundice (principal); C18.6 Malignant neoplasm of descending colon
CPT/HCPCS: 74181; 71260; 74177; J1642